=== PATIENT | female | born 1960 | race Caucasian/White ===

== ENCOUNTER → 2021-02-07 07:05 | Outpatient (CLI) | payer OTHER, SELFPAY ==
[2021-02-07 19:44] LABS: SARS-CoV-2 RNA PCR Negative
== END ==
PROVIDERS: PCP Internal Medicine; Visit Provider Internal Medicine Gastroenterology
DX: Z01.812 Encounter for preprocedural laboratory examination (principal); Z20.822 Contact with and (suspected) exposure to COVID-19
CPT/HCPCS: C9803; U0003; U0005

== ENCOUNTER 2021-02-10 01:04 | Day surgery (SDC) | payer OTHER, SELFPAY ==
[2021-02-04 08:59] VITALS: BMI 30.9
[2021-02-10 10:44] VITALS: BP 124/86; PULSE 100; RESP 16; TEMP 36.6; O2SAT 95; BMI 29.7
[2021-02-10] MEDS: LACTATED RINGERS 1,000 ML 150 ML IV CONT (10:51)
--- NOTE | 2021-02-10 11:16 | WPDANESEPPF ---
Anes - Initial Pre Proc Eval Procedure: Operation Date: 02/10/21 11:30 Proposed Procedures p Esophagogastroduodenoscopy & Colonoscopy - Dallin Loyd MD Date/Time: 02/10/21 11:16 Surgeon: Dallin Loyd MD Pre Op Diagnosis: positive cologuard, GERD Patient Data Age: 60 Gender: F Height: 5 ft 9 in Weight: 91.3 kg Last Vital Signs Temp 97.9 F 02/10/21 10:44 Pulse 100 02/10/21 10:44 Resp 16 02/10/21 10:44 BP 124/86 02/10/21 10:44 Pulse Ox 95 02/10/21 10:44 Allergies Allergy/AdvReac Type Severity Reaction Status Date / Time No Known Allergies Allergy Verified 02/10/21 10:41 Home Medications Medication Instructions Recorded Confirmed Type buprenorphine HCl 8 mg sublingual 8 mg SUBLINGUAL DAILY 11/25/20 02/10/21 History tablet folic acid 1 mg tablet 1 mg PO TID tablet 11/25/20 02/10/21 History methotrexate (PF) 25 mg/0.5 mL 25 mg SUBCUT WEEKLY 11/25/20 02/10/21 History subcutaneous auto-injector multivitamin 1 tablet PO DAILY 11/25/20 02/10/21 History pregabalin 150 mg capsule 150 mg PO BID 11/25/20 02/10/21 History venlafaxine 150 mg 150 mg PO .every other day cap 11/25/20 02/10/21 History capsule,extended release 24 hr cholecalciferol (vitamin D3) 50 50 mcg PO DAILY #90 tablet 11/26/20 02/10/21 Rx mcg (2,000 unit) tablet baclofen 10 mg tablet 10 mg PO DAILY 12/19/20 02/10/21 History metoprolol succinate 50 mg 50 mg PO DAILY #30 tablet 12/29/20 02/10/21 Rx tablet,extended release 24 hr pantoprazole 40 mg tablet,delayed 40 mg PO .COMPLEX #90 tablet 02/02/21 02/10/21 Rx release Patient hx anesthesia problems: none Family hx anesthesia problems: none PMFSH Past Medical History Medical History (Updated 02/10/21 @ 11:16 by Nikolas Winn MD) Anxiety Arthritis, rheumatoid Depression Hyperlipidemia Hypertension Opioid dependence Surgical History Surgical History H/O lumpectomy History of urinary tract surgery Family History Family History Mother No problems noted. Father Heart disease Sibling Cancer Grandparent No problems noted. Social History Social History (Updated 02/02/21 @ 07:58 by Inessa Winn MA) Smoking packs per day: 1 Smoking cigarettes per day: 20.0 Years smoked: 45 Smoking pack-years: 45.00 Smoking status: Current every day smoker Tobacco type: cigarettes Second hand tobacco smoke exposure: No Alcohol intake: never Living arrangements: with family Gender identity (if verbalized by the patient): Female Spiritual care concerns: No Anes - Eval Final PreProcedure Day of Procedure 02/10/21 11:16 Patient weight: overweight Heart: regular rate and rhythm Lungs: clear to auscultation Airway: Mallampati scale class II Neurological: alert and oriented Last oral intake: >/= 8 hours ASA classification: III Emergent: no Anesthetic plan: proceed Anesthesia type and monitoring: general GIVS and standard monitoring Informed Consent: The patient's anesthetic plan and its attendant risks and benefits were discussed with the patient/family/POA. Questions were solicited and answers provided to the satisfaction of the patient/family/POA.
--- NOTE | 2021-02-10 11:30 | PM.HPGS ---
History of Present Illness History of Present Illness Consent: Risks, benefits, and alternatives have been discussed and questions answered. Patient agrees to proceed with procedure. Chief complaint: positive cologuard, GERD Narrative: Miracle Rosenberg is a 60 year old female who has been troubled by epigastric pain for the last few months. At times it seems as though the discomfort is worse if she is lying or standing. In many respects it reminds her of the pain that she 1st experienced with acid reflux disease but now she is on medication for it she had not been having heartburn. This pain will last for a couple of hours and is generally relieved at least in part by taking Pepto-Bismol or another rpov-qlo-lprnswe preparation. She denies dysphagia vomiting or weight loss. The pain will feel like a hardness or very tight fist like discomfort in the epigastric area. She has not yet had a colonoscopy. Her recent ColoGuard test was positive. Review of Systems Review of Systems: All systems reviewed & are unremarkable except as noted in HPI and below PMFSH Past Medical History Medical History Anxiety Arthritis, rheumatoid Depression Hyperlipidemia Hypertension Opioid dependence Surgical History Surgical History H/O lumpectomy History of urinary tract surgery Family History Family History Mother No problems noted. Father Heart disease Sibling Cancer Grandparent No problems noted. Social History Social History Smoking packs per day: 1 Smoking cigarettes per day: 20.0 Years smoked: 45 Smoking pack-years: 45.00 Smoking status: Current every day smoker Tobacco type: cigarettes Second hand tobacco smoke exposure: No Alcohol intake: never Living arrangements: with family Gender identity (if verbalized by the patient): Female Spiritual care concerns: No Meds Home Medications and Allergies Home Medications Medication Instructions Recorded Confirmed Type buprenorphine HCl 8 mg sublingual 8 mg SUBLINGUAL DAILY 11/25/20 02/10/21 History tablet folic acid 1 mg tablet 1 mg PO TID tablet 11/25/20 02/10/21 History methotrexate (PF) 25 mg/0.5 mL 25 mg SUBCUT WEEKLY 11/25/20 02/10/21 History subcutaneous auto-injector multivitamin 1 tablet PO DAILY 11/25/20 02/10/21 History pregabalin 150 mg capsule 150 mg PO BID 11/25/20 02/10/21 History venlafaxine 150 mg 150 mg PO .every other day cap 11/25/20 02/10/21 History capsule,extended release 24 hr cholecalciferol (vitamin D3) 50 50 mcg PO DAILY #90 tablet 11/26/20 02/10/21 Rx mcg (2,000 unit) tablet baclofen 10 mg tablet 10 mg PO DAILY 12/19/20 02/10/21 History metoprolol succinate 50 mg 50 mg PO DAILY #30 tablet 12/29/20 02/10/21 Rx tablet,extended release 24 hr pantoprazole 40 mg tablet,delayed 40 mg PO .COMPLEX #90 tablet 02/02/21 02/10/21 Rx release Allergies Allergy/AdvReac Type Severity Reaction Status Date / Time No Known Allergies Allergy Verified 02/10/21 10:41 Vital Signs Vital Signs - 24 hr 02/10/21 10:44 Temperature 36.6 C Pulse Rate 100 Respiratory Rate 16 Blood Pressure 124/86 Pulse Oximetry 95 Exam Const: General: alert Orientation/consciousness: patient oriented x3 Resp: Auscultation: clear to auscultation bilaterally Cardio: Rhythm: regular rhythm GI: GI Palp: Yes Soft to palpation and No Tenderness to palpation present (GI) Neuro: General: patient oriented x3 Assessment and Plan Assessment and plan (1) Epigastric pain: Code(s): R10.13 - Epigastric pain Status: Acute Assessment and Plan: EGD with possible biopsy or dilatation or cautery. (2) Positive colorectal cancer screening using Cologua
[2021-02-10 12:06] VITALS: BP 113/78; PULSE 69; RESP 14; O2SAT 96
[2021-02-10 12:16] VITALS: BP 137/84; PULSE 77; RESP 20; O2SAT 95
[2021-02-10 12:26] VITALS: BP 132/8; PULSE 66; RESP 12; O2SAT 97
== END 2021-02-10 12:28 | disposition home or self-care (01) ==
PROVIDERS: PCP Internal Medicine; Visit Provider Internal Medicine Gastroenterology
PROC: 0DJ08ZZ Inspection of Upper Intestinal Tract, Via Natural or Artificial Opening Endoscopic (ICD-10-PCS; CPT 43235; principal; 2021-02-10 11:30)
DX: Z12.11 Encounter for screening for malignant neoplasm of colon (principal); R19.5 Other fecal abnormalities; K25.9 Gastric ulcer, unspecified as acute or chronic, without hemorrhage or perforation; K21.9 Gastro-esophageal reflux disease without esophagitis; I10 Essential (primary) hypertension; E78.5 Hyperlipidemia, unspecified; M06.9 Rheumatoid arthritis, unspecified; F41.8 Other specified anxiety disorders; F17.210 Nicotine dependence, cigarettes, uncomplicated
CPT/HCPCS: 45378; 43239; 87081; C9803; J2704; J7120; U0003; U0005

== ENCOUNTER → 2021-02-25 15:47 | Outpatient (CLI) | payer OTHER, SELFPAY ==
--- NOTE | ~2021-02-25 | CT_ITS ---
EXAMINATION:CT lung screening DATE: 02/25/2021 15:57 INDICATION: Tobacco use. Current smoker with 30 pack year history. TECHNIQUE: Computed tomography (CT) of the chest was performed without intravenous contrast. Automate d exposure control and iterative reconstruction technique were employed. The dose-length product (DLP ) was 106.87 mGy-cm. COMPARISON: Chest 2 views 11/23/2012 FINDINGS: There is mild atelectasis bilaterally. No pleural effusion. The heart size is normal. No pe ricardial effusion. Calcified left hilar lymph nodes are consistent with old granulomatous disease. C alcifications in the spleen are consistent with old granulomatous disease. There is mild thoracic spo ndylosis. IMPRESSION: 1. Lung-RADS category 1: Negative. Continue annual screening with noncontrast low-dose chest CT in 12 months. Reviewed, dictated and finalized at location A. IMPRESSION: 1. Lung-RADS category 1: Negative. Continue annual screening with noncontrast l ow-dose chest CT in 12 months.
== END ==
PROVIDERS: PCP Internal Medicine; Visit Provider Internal Medicine
DX: Z12.2 Encounter for screening for malignant neoplasm of respiratory organs (principal); Z87.891 Personal history of nicotine dependence
CPT/HCPCS: 71271

== ENCOUNTER → 2021-03-07 01:54 | Outpatient (CLI) | payer OTHER, SELFPAY ==
[2021-03-07 19:43] LABS: SARS-CoV-2 RNA PCR Negative
== END ==
PROVIDERS: PCP Internal Medicine; Visit Provider Internal Medicine Gastroenterology
DX: Z01.812 Encounter for preprocedural laboratory examination (principal); Z20.822 Contact with and (suspected) exposure to COVID-19
CPT/HCPCS: C9803; U0003; U0005

== ENCOUNTER 2021-03-11 02:20 | Day surgery (SDC) | payer OTHER, SELFPAY ==
[2021-03-02 15:00] VITALS: BMI 32.7
--- NOTE | 2021-03-11 07:41 | PM.HPGS ---
History of Present Illness History of Present Illness Consent: Risks, benefits, and alternatives have been discussed and questions answered. Patient agrees to proceed with procedure. Chief complaint: positive cologuard Narrative: Miracle Rosenberg is a 60 year old female referred for colon cancer screening. A colo guard test was done and was positive Review of Systems Review of Systems: All systems reviewed & are unremarkable except as noted in HPI and below PMFSH Past Medical History Medical History Anxiety Arthritis, rheumatoid Depression Hyperlipidemia Hypertension Opioid dependence Surgical History Surgical History H/O lumpectomy History of urinary tract surgery Family History Family History Mother No problems noted. Father Heart disease Sibling Cancer Grandparent No problems noted. Social History Social History Smoking packs per day: 1 Smoking cigarettes per day: 20.0 Years smoked: 45 Smoking pack-years: 45.00 Smoking status: Never smoker Tobacco type: cigarettes Second hand tobacco smoke exposure: No Alcohol intake: never Substance use: never Substance use type: does not use Living arrangements: with family Gender identity (if verbalized by the patient): Female Sexual Orientation (if Verbalized by the Patient): Straight or Heterosexual Spiritual care concerns: No Meds Home Medications and Allergies Home Medications Medication Instructions Recorded Confirmed Type buprenorphine HCl 8 mg sublingual 8 mg SUBLINGUAL DAILY 11/25/20 03/02/21 History tablet folic acid 1 mg tablet 1 mg PO TID tablet 11/25/20 03/02/21 History methotrexate (PF) 25 mg/0.5 mL 25 mg SUBCUT WEEKLY 11/25/20 03/02/21 History subcutaneous auto-injector multivitamin 1 tablet PO DAILY 11/25/20 03/02/21 History pregabalin 150 mg capsule 150 mg PO BID 11/25/20 03/02/21 History venlafaxine 150 mg 150 mg PO .every other day cap 11/25/20 03/02/21 History capsule,extended release 24 hr cholecalciferol (vitamin D3) 50 50 mcg PO DAILY #90 tablet 11/26/20 03/02/21 Rx mcg (2,000 unit) tablet baclofen 10 mg tablet 10 mg PO DAILY 12/19/20 03/02/21 History metoprolol succinate 50 mg 50 mg PO DAILY #30 tablet 12/29/20 03/02/21 Rx tablet,extended release 24 hr pantoprazole 40 mg tablet,delayed 40 mg PO .COMPLEX #90 tablet 02/02/21 03/02/21 Rx release Allergies Allergy/AdvReac Type Severity Reaction Status Date / Time No Known Allergies Allergy Verified 03/11/21 07:40 Exam Resp: Auscultation: clear to auscultation bilaterally Cardio: Rate: regular rate Rhythm: regular rhythm GI: GI Palp: Yes Soft to palpation and No Tenderness to palpation present (GI) Assessment and Plan Assessment and plan (1) Positive colorectal cancer screening using Cologuard test: Code(s): R19.5 - Other fecal abnormalities Status: Acute Assessment and Plan: Colonoscopy with possible biopsy or polypectomy or cautery or injection of substances.
[2021-03-11 07:42] VITALS: BP 115/75; PULSE 85; RESP 18; TEMP 36.3; O2SAT 94
--- NOTE | 2021-03-11 07:47 | WPDANESEPPF ---
Anes - Initial Pre Proc Eval Procedure: Operation Date: 03/11/21 08:30 Proposed Procedures p Colonoscopy - Dallin Loyd MD Date/Time: 03/11/21 07:47 Surgeon: Dallin Loyd MD Pre Op Diagnosis: positive cologuard Patient Data Age: 60 Gender: F Height: 1.73 m Weight: 91.1 kg Last Vital Signs Temp 36.3 C L 03/11/21 07:42 Pulse 85 03/11/21 07:42 Resp 18 03/11/21 07:42 BP 115/75 03/11/21 07:42 Pulse Ox 94 03/11/21 07:42 Allergies Allergy/AdvReac Type Severity Reaction Status Date / Time No Known Allergies Allergy Verified 03/11/21 07:40 Home Medications Medication Instructions Recorded Confirmed Type buprenorphine HCl 8 mg sublingual 8 mg SUBLINGUAL DAILY 11/25/20 03/02/21 History tablet folic acid 1 mg tablet 1 mg PO TID tablet 11/25/20 03/02/21 History methotrexate (PF) 25 mg/0.5 mL 25 mg SUBCUT WEEKLY 11/25/20 03/02/21 History subcutaneous auto-injector multivitamin 1 tablet PO DAILY 11/25/20 03/02/21 History pregabalin 150 mg capsule 150 mg PO BID 11/25/20 03/02/21 History venlafaxine 150 mg 150 mg PO .every other day cap 11/25/20 03/02/21 History capsule,extended release 24 hr cholecalciferol (vitamin D3) 50 50 mcg PO DAILY #90 tablet 11/26/20 03/02/21 Rx mcg (2,000 unit) tablet baclofen 10 mg tablet 10 mg PO DAILY 12/19/20 03/02/21 History metoprolol succinate 50 mg 50 mg PO DAILY #30 tablet 12/29/20 03/02/21 Rx tablet,extended release 24 hr pantoprazole 40 mg tablet,delayed 40 mg PO .COMPLEX #90 tablet 02/02/21 03/02/21 Rx release Patient hx anesthesia problems: none Family hx anesthesia problems: none PMFSH Past Medical History Medical History Anxiety Arthritis, rheumatoid Depression Hyperlipidemia Hypertension Opioid dependence Surgical History Surgical History H/O lumpectomy History of urinary tract surgery Family History Family History Mother No problems noted. Father Heart disease Sibling Cancer Grandparent No problems noted. Social History Social History Smoking packs per day: 1 Smoking cigarettes per day: 20.0 Years smoked: 45 Smoking pack-years: 45.00 Smoking status: Never smoker Tobacco type: cigarettes Second hand tobacco smoke exposure: No Alcohol intake: never Substance use: never Substance use type: does not use Living arrangements: with family Gender identity (if verbalized by the patient): Female Sexual Orientation (if Verbalized by the Patient): Straight or Heterosexual Spiritual care concerns: No Anes - Eval Final PreProcedure Day of Procedure 03/11/21 07:47 Patient weight: obese Heart: regular rate and rhythm Lungs: clear to auscultation and normal air movement Airway: Mallampati scale class II Neurological: alert and oriented Last oral intake: >/= 8 hours ASA classification: III Emergent: no Anesthetic plan: proceed Anesthesia type and monitoring: general GIVS Informed Consent: The patient's anesthetic plan and its attendant risks and benefits were discussed with the patient/family/POA. Questions were solicited and answers provided to the satisfaction of the patient/family/POA.
[2021-03-11] MEDS: LACTATED RINGERS 1,000 ML 150 ML IV CONT (07:56)
[2021-03-11 08:46] VITALS: BP 101/53; PULSE 66; RESP 14; O2SAT 98
--- NOTE | 2021-03-11 08:49 | SUR.OPER ---
resolution clip x 1 expiration 01-01 lot no [id number]
[2021-03-11 08:56] VITALS: BP 110/62; PULSE 67; RESP 18; O2SAT 99
[2021-03-11 09:06] VITALS: BP 139/79; PULSE 65; RESP 16; O2SAT 100
== END 2021-03-11 09:14 | disposition home or self-care (01) ==
PROVIDERS: PCP Internal Medicine; Visit Provider Internal Medicine Gastroenterology
PROC: 0DJD8ZZ Inspection of Lower Intestinal Tract, Via Natural or Artificial Opening Endoscopic (ICD-10-PCS; CPT 45378; principal; 2021-03-11 08:30)
DX: Z12.11 Encounter for screening for malignant neoplasm of colon (principal); D12.5 Benign neoplasm of sigmoid colon; D12.4 Benign neoplasm of descending colon; R19.5 Other fecal abnormalities; I10 Essential (primary) hypertension; E78.5 Hyperlipidemia, unspecified; M06.9 Rheumatoid arthritis, unspecified; F41.8 Other specified anxiety disorders; E66.9 Obesity, unspecified; Z68.30 Body mass index [BMI] 30.0-30.9, adult; F17.210 Nicotine dependence, cigarettes, uncomplicated; F11.20 Opioid dependence, uncomplicated
CPT/HCPCS: 45385; 88305; C9803; J2704; J7120; U0003; U0005

== ENCOUNTER → 2022-09-30 13:20 | Outpatient (CLI) | payer OTHER, SELFPAY ==
--- NOTE | ~2022-09-30 | DEXA_ITS ---
Bone Density Report Name: AUGUSTO REY Age: 62 Sex: Female Ethnicity: White Date of : 1960 Indication: postmenopausal; screening for osteoporosis; height loss; rheumatoid arthritis; Referring Provider: Flora Birmingham Study: Bone densitometry was performed. Exam Date: September 30, 2022 Accession number: [id number] Bone Density: Region BMD T-score Z-score Classification AP Spine (L1-L4) 0.951 -0.9 0.8 Normal Femoral Neck (Left) 0.696 -1.4 0.1 Osteopenia Total Hip (Left) 0.878 -0.5 0.7 Normal Femoral Neck (Right) 0.733 -1.0 0.4 Normal Total Hip (Right) 0.857 -0.7 0.5 Normal Total Hip Mean 0.868 -0.6 0.6 Normal World Health Organization criteria for BMD impression classify patients as: Normal (T-score at or above -1.0), Osteopenia (T-score between -1.0 and -2.5), or Osteoporosis (T-score at or below -2.5). 10-year Fracture Risk(1): Major Osteoporotic Fracture 11% Hip Fracture 1.8% Reported Risk Factors: [place] (), Neck BMD=0.696, BMI=33.0, smoking, rheumatoid arthritis (1) FRAX(R) Version 3.08. Fracture probability calculated for an untreated patient. Fracture probability may be lower if the patient has received treatment. Clinical Information Provided by Patient: Smokes Has rheumatoid arthritis Has used the following medications: Vitamin D, MTV, RA meds Patient maximum height was 67.5 Menopause Age: 51 No regular weight bearing exercise Does not regularly consume dairy products Drinks caffeinated beverages Onset of menses at age 10 Number of children 2 Impression: The patient has low bone mass, based on the Left Femoral Neck T-score. The patient has an estimated ten-year risk of hip fracture of 1.8% and an estimated ten-year risk of major fracture of 11%, based on the WHO FRAX algorithm. The patient has risk factors, including: smoking. Discussion: BONE DENSITY IS LOW AT ONE OR MORE SKELETAL SITES. This patient's lowest T-score is low at one or more skeletal sites. It meets the World Health Organization's (WHO) criteria for ?low bone mass? (T-score between -1.0 and -2.5). The patient's 10-year risk of fracture as calculated by FRAX is less than the threshold where pharmacological therapy is recommended by the National Osteoporosis Foundation (NOF). However, all treatment decisions require clinical judgment and consideration of individual patient factors, including patient preferences, comorbidities, previous drug use, risk factors not captured in the FRAX model (e.g., frailty, falls, vitamin D deficiency, increased bone turnover, interval significant decline in bone density) and possible under or overestimation of fracture risk by FRAX. The patient should follow a healthful lifestyle (good nutrition with adequate calcium and vitamin D, and appropriate weight-bearing exerc
--- NOTE | ~2022-09-30 | MM_ITS ---
EXAMINATION: MM screening poornima BI w brendan HISTORY: Screening mammogram, history of left excisional biopsy TECHNIQUE: Craniocaudal and mediolateral oblique 3-D tomosynthesis images were obtained and synthetic 2-D images were generated. CAD analysis was submitted and interpreted. COMPARISON: No prior mammogram is available for comparison at this institution. BREAST PARENCHYMAL COMPOSITION: There are scattered areas of fibroglandular density. FINDINGS: RIGHT BREAST: No suspicious mass, calcification, or architectural distortion are identified to sugges t malignancy. LEFT BREAST: There is asymmetry in the subareolar aspect of the breast.. IMPRESSION: 1. Subareolar asymmetry of the left breast. 2. Additional mammographic views and possible breast ultrasound are recommended. BI-RADS Category 0: Incomplete: Needs additional imaging evaluation. Reviewed, dictated and finalized at location A. [place] SALES ASSISTANT IMPRESSION: 1. Subareolar asymmetry of the left breast. 2. Additional mammographic views and possible breast ultrasound are recommended . BI-RADS Category 0: Incomplete: Needs additional imaging evaluation.
== END ==
PROVIDERS: PCP Nurse Practitioner; Visit Provider Nurse Practitioner
DX: Z12.31 Encounter for screening mammogram for malignant neoplasm of breast (principal); Z78.0 Asymptomatic menopausal state; R92.8 Other abnormal and inconclusive findings on diagnostic imaging of breast; M85.852 Other specified disorders of bone density and structure, left thigh
CPT/HCPCS: 77063; 77067; 77080

== ENCOUNTER → 2022-11-23 08:42 | Outpatient (CLI) | payer OTHER, SELFPAY ==
--- NOTE | ~2022-11-23 | MMUS_ITS ---
EXAMINATION: MM diagnostic poornima LT w brendan, US breast LT limited HISTORY: Follow-up left breast mass TECHNIQUE: Additional 3-D tomosynthesis images of the left breast were performed and synthetic 2-D im ages were generated. CAD analysis was submitted and interpreted. High resolution Limited left breast ultrasound was performed. COMPARISON: 09/30/2022 BREAST PARENCHYMAL COMPOSITION: Breast composed of scattered areas of fibroglandular density FINDINGS: MAMMOGRAPHIC FINDINGS: There is a small 3 mm mass in the upper outer quadrant of the left breast anteriorly. There are no arredondo spicious calcifications or architectural distortion. ULTRASOUND: Limited left breast ultrasound: At 12:00 near the areola there is a round anechoic mass with enhanced or transmission. There is internal vascularity. This mass measures 5 mm, likely corresponding to the mammographic finding. IMPRESSION: 1. Probable benign left breast mass at 12:00 near the areola measuring 5 mm. 2. Recommend 6 month follow-up diagnostic left mammogram and ultrasound BI-RADS category 3, probably benign findings. Reviewed, dictated and finalized at location A. ERY CLERK IMPRESSION: 1. Probable benign left breast mass at 12:00 near the areola measuring 5 mm. 2. Recommend 6 month follow-up diagnostic left mammogram and ultrasound BI-RADS category 3, probably benign findings.
== END ==
PROVIDERS: PCP Internal Medicine; Visit Provider Internal Medicine
DX: R92.8 Other abnormal and inconclusive findings on diagnostic imaging of breast (principal)
CPT/HCPCS: 76642; 77061; 77065; G0279

== ENCOUNTER 2023-03-15 16:52 | Outpatient (CLI) | payer OTHER, SELFPAY ==
--- NOTE | ~2023-03-15 | XR_ITS ---
EXAMINATION: XR foot RT min 3V DATE: 03/15/2023 19:05 INDICATION: Acute pain in right foot. TECHNIQUE: 4 views of right foot were obtained. COMPARISON: None. FINDINGS: There is severe hallux valgus. There is dorsiflexion of the metatarsophalangeal joints and flexion of the interphalangeal joints. There is dorsal dislocation of second proximal phalanx with re spect to the metatarsal. There is moderate osteoarthritis of first metatarsophalangeal joint and firs t interphalangeal joint and mild osteoarthritis of some of the interphalangeal joints. There are enth esophytes at the posterior and plantar aspects of calcaneal tuberosity. IMPRESSION: 1. Severe hallux valgus. 2. Dorsal dislocation of second proximal phalanx with respect to the metatarsal. 3. Polyarticular osteoarthritis. Reviewed, dictated and finalized at location A. IMPRESSION: 1. Severe hallux valgus. 2. Dorsal dislocation of second proximal phalanx with respect to the metatarsal . 3. Polyarticular osteoarthritis.
== END 2023-03-15 16:53 | disposition home or self-care (01) ==
LOC: ANHIMG 16:54
PROVIDERS: PCP Family Medicine; Visit Provider Physician Assistant
DX: M79.671 Pain in right foot (principal)
CPT/HCPCS: 73630

== ENCOUNTER → 2023-07-15 14:19 | Outpatient (CLI) | payer OTHER, SELFPAY ==
--- NOTE | ~2023-07-15 | MMUS_ITS ---
EXAMINATION: MM diagnostic poornima LT w brendan, US breast LT limited HISTORY: Follow-up left breast mass TECHNIQUE: Additional 3-D tomosynthesis images of the left breast were performed and synthetic 2-D im ages were generated. CAD analysis was submitted and interpreted. High resolution Limited left breast ultrasound was performed. COMPARISON: 11/23/2022 BREAST PARENCHYMAL COMPOSITION: Breast composed of scattered areas of fibroglandular density FINDINGS: MAMMOGRAPHIC FINDINGS: There is a 3 mm mass in the upper outer quadrant of the left breast anteriorly with circumscribed mar gins and central lucency, likely benign. There are no suspicious calcifications or architectural dist ortion. ULTRASOUND: Limited left breast ultrasound: Normal heterogeneous echotexture without focal solid or cystic mass. IMPRESSION: 1. Left breast mass, likely benign, measuring 3 mm, upper outer quadrant anteriorly. No sonographic c orrelate. 2. Recommend 6 month follow-up diagnostic left mammogram and possible additional ultrasound BI-RADS category 3, probably benign findings. Reviewed, dictated and finalized at location A. IMPRESSION: 1. Left breast mass, likely benign, measuring 3 mm, upper outer quadrant anteri aura. No sonographic correlate. 2. Recommend 6 month follow-up diagnostic left mammogram and possible additiona l ultrasound BI-RADS category 3, probably benign findings.
== END ==
PROVIDERS: PCP Nurse Practitioner; Visit Provider Nurse Practitioner
DX: R92.8 Other abnormal and inconclusive findings on diagnostic imaging of breast (principal)
CPT/HCPCS: 76642; 77061; 77065; G0279

== ENCOUNTER 2023-07-21 15:32 | Outpatient (CLI) | payer OTHER, SELFPAY ==
--- NOTE | ~2023-07-21 | XR_ITS ---
XR foot LT 2V DATE: 07/21/2023 15:55 INDICATION: Medial foot pain TECHNIQUE: AP and lateral views COMPARISON: None FINDINGS: Minimal plantar and posterior calcaneal enthesopathy. There is prominent osteoarthritic change including severe narrowing of joint space at the first metat arsophalangeal joint. Prominent hallux valgus and bunion deformity. Hammertoe deformities of the second through fifth digits. No fracture or dislocation, periosteal reaction or bone destruction is detected. 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
--- NOTE | ~2023-07-21 | XR_ITS ---
XR ankle LT min 3V DATE: 07/21/2023 15:54 INDICATION: Medial ankle pain. Fall 2 weeks ago. TECHNIQUE: 4 views COMPARISON: None FINDINGS: Moderate soft tissue swelling of the ankle. No fracture or dislocation of the ankle or disruption of the ankle mortise is detected. Minimal plantar and posterior calcaneal enthesopathy. IMPRESSION: Soft tissue swelling of the ankle Minimal plantar and posterior calcaneal enthesopathy Reviewed, dictated and finalized at location A.
== END 2023-07-21 15:33 | disposition home or self-care (01) ==
PROVIDERS: PCP Nurse Practitioner; Visit Provider Nurse Practitioner
DX: M25.572 Pain in left ankle and joints of left foot (principal); M79.672 Pain in left foot; M20.12 Hallux valgus (acquired), left foot; M21.612 Bunion of left foot; M20.42 Other hammer toe(s) (acquired), left foot; M19.072 Primary osteoarthritis, left ankle and foot; M77.32 Calcaneal spur, left foot; R22.42 Localized swelling, mass and lump, left lower limb
CPT/HCPCS: 73610; 73620

== ENCOUNTER 2024-02-10 10:53 | Outpatient (CLI) | payer OTHER, SELFPAY ==
--- NOTE | ~2024-02-10 | MM_ITS ---
EXAMINATION: MM diagnostic poornima LT w brendan HISTORY: Follow-up left breast mass TECHNIQUE: Additional 3-D tomosynthesis images of the left breast were performed and synthetic 2-D im ages were generated. CAD analysis was submitted and interpreted. COMPARISON: Comparison to multiple prior studies sequentially, with oldest reviewed study dated 05/2022. BREAST PARENCHYMAL COMPOSITION: Not dense: There are scattered areas of fibroglandular density. FINDINGS: Stable 3 mm mass upper outer quadrant of the left breast anteriorly, most likely benign. No significant change dating back to 09/30/2022. IMPRESSION: 1. Stable 3 mm left breast mass located upper outer quadrant anteriorly. 2. Targeted left breast ultrasound recommended. BI-RADS Category 0: Incomplete: Needs additional imaging evaluation. Reviewed, dictated and finalized at location B.
== END 2024-02-10 10:54 | disposition home or self-care (01) ==
LOC: ANHIMG 10:54
PROVIDERS: PCP Nurse Practitioner Family; Visit Provider Nurse Practitioner
DX: N63.21 Unspecified lump in the left breast, upper outer quadrant (principal); R92.8 Other abnormal and inconclusive findings on diagnostic imaging of breast
CPT/HCPCS: 77061; 77065; G0279

== ENCOUNTER 2024-02-20 12:52 | Outpatient (CLI) | payer OTHER, SELFPAY ==
--- NOTE | ~2024-02-20 | CT_ITS ---
CT Scan of the Chest without Contrast: Clinical Indication: Lung cancer screening, nicotine dependence Technique: Contiguous sections were acquired throughout the chest without intravenous contrast. Dose reduction technique was used on this scan by utilizing automated exposure control and iterative recon struction technique. The dose-length product (DLP) was 148.69 mGy-cm. COMPARISON: 02/25/2021 Findings: There is no evidence of any significant mediastinal, hilar or axillary lymphadenopathy. The mediastin al soft tissues appear normal. There is no evidence of pleural or pericardial effusion. The lungs are clear. No pulmonary nodules or infiltrates are noted. Images through the upper abdomen reveal no abnormalities. Impression: Lung RADS 1: Negative. 12 month follow-up screening CT advised. Reviewed, dictated and finalized at location . Impression: Lung RADS 1: Negative. 12 month follow-up screening CT advised.
== END 2024-02-20 12:53 ==
LOC: MICIMG 12:53
PROVIDERS: PCP Nurse Practitioner Family; Visit Provider Nurse Practitioner Family
DX: Z12.2 Encounter for screening for malignant neoplasm of respiratory organs (principal); Z87.891 Personal history of nicotine dependence
CPT/HCPCS: 71271

== ENCOUNTER 2024-02-20 14:16 | Outpatient (CLI) | payer OTHER, SELFPAY ==
--- NOTE | ~2024-02-20 | US_ITS ---
US breast LT limited DATE: 02/20/2024 15:09 INDICATION: Stable 3 mm anterior upper outer quadrant left breast mass reported on February 10, 2024 gabriella gnostic mammogram TECHNIQUE: Real time imaging targeted 12:00 subareolar area COMPARISON: February 10, 2024 left diagnostic mammogram July 15, 2023 diagnostic left mammogram and Limited left breast ultrasound FINDINGS: There is a circumscribed 3.5 x 4.5 mm sonolucency with through transmission, no posterior e nhancement or internal vascularity at the 12:00 subareolar area, benign in appearance. IMPRESSION: BI-RADS Category 2: Benign Recommendation: Routine annual mammographic screening Reviewed, dictated and finalized at [facility]. Reviewed, dictated and finalized at location [facility].
== END 2024-02-20 14:17 | disposition home or self-care (01) ==
PROVIDERS: PCP Nurse Practitioner Family; Visit Provider Nurse Practitioner
DX: R92.8 Other abnormal and inconclusive findings on diagnostic imaging of breast (principal)
CPT/HCPCS: 76642

== ENCOUNTER 2024-05-25 10:40 | Outpatient (CLI) | payer OTHER, SELFPAY ==
--- NOTE | 2024-05-25 | ECG_ITS ---
Test Date: 2024-05-25 11:32:55 Measurements Intervals [place] Rate: 66 P: 16 IA: 148 QRS: 50 QRSD: 92 T: 26 QT: 380 QTc: 399 Interpretive Statements SINUS RHYTHM NORMAL ELECTROCARDIOGRAM No previous ECG available for comparison Electronically Signed On 05-25-2024 11:39:09 CDT by Geraldo Franks M.D.
[2024-05-25 11:42] LABS: Hematocrit 43.4 % (37.0-47.0); Hemoglobin 13.9 g/dL (12.0-15.0); Mean Corpuscular Hemoglobin 31.7 pg (26-34); Mean Corpuscular Volume 99.1 fl (80-100); Mean Platelet Volume 9.3 fl (7.4-10.4); Platelet Count Result 299 k/mm3 (150-375); Red Blood Count 4.38 M/mm3 (4.2-5.4); Red Cell Distribution Width 15.2 % (11.5-14.5); White Blood Count 6.3 K/mm3 (4.5-10.0)
== END 2024-05-25 10:41 | disposition home or self-care (01) ==
PROVIDERS: PCP Nurse Practitioner Family
DX: M24.576 Contracture, unspecified foot (principal)
CPT/HCPCS: 36415; 85027; 93005

== ENCOUNTER 2024-10-11 12:40 | Outpatient (CLI) | payer OTHER, SELFPAY ==
--- NOTE | ~2024-10-11 | US_ITS ---
EXAMINATION:US venous doppler LE RT INDICATION:Right leg pain and swelling. TECHNIQUE: Multiple grayscale, color flow and Doppler images of the right lower extremity deep venous systems were obtained and reviewed. COMPARISON:No prior studies for comparison. FINDINGS: The common femoral, superficial femoral and popliteal veins demonstrate normal respiratory variation, augmentation and compressibility. Color flow is also seen within the posterior tibial, pe roneal, greater saphenous and profunda veins. IMPRESSION: 1: No lower extremity deep venous thrombosis. Reviewed, dictated and finalized at location [facility]. [employer]ANCE CLAIM REPRESENTATIVE
== END 2024-10-11 12:41 | disposition home or self-care (01) ==
LOC: MICIMG 12:40
PROVIDERS: PCP Nurse Practitioner Family
DX: I82.401 Acute embolism and thrombosis of unspecified deep veins of right lower extremity (principal)
CPT/HCPCS: 93971

== ENCOUNTER 2025-02-20 12:55 | Outpatient (CLI) | payer OTHER, SELFPAY ==
--- NOTE | ~2025-02-20 | MR_ITS ---
MRI of the right foot CLINICAL HISTORY: Pain TECHNIQUE: Axial T1-weighted, T2 fat sat, and T1 fat-sat images, sagittal T1-weighted and STIR images , and coronal T1-weighted and proton-density fat-sat images were performed. Following intravenous adm inistration of 18 cc MultiHance gadolinium, T1-weighted fat-sat imaging was performed in the axial, c oronal, and sagittal planes. FINDINGS: There is destructive change with T1 hypointense signal centered about the first MTP joint, extensively along the distal aspect of the first metatarsal and the first proximal phalanx. There is associated marrow edema on fluid sensitive sequences. There is probable fluid in the first MTP joint space with associated lobulated fluid collection along the dorsal aspect of the joint measuring 1.9 x 2.5 x 0.9 cm. Suspected prior resection of the second through fifth metatarsal heads versus destructive change. T1 marrow signal in the remainder of the second through fifth metatarsal appears to be relatively intact . Phalanges of the second through fifth toes appear to be intact. Visualized plantar fascia is intact. IMPRESSION: Findings compatible with osteomyelitis and septic arthritis centered at the first MTP joint, with ext ensive abnormal marrow signal destructive change of the first proximal phalanx and distal portion of the first metatarsal. Associated lobular fluid collection along the dorsal aspect of the joint measur ing 1.9 x 2.5 x 0.9 cm could reflect associated abscess. Suspected prior resection of the second through fifth metatarsal heads. Osteomyelitis and destructive change of the second through fifth metatarsal is felt to be less likely, but correlation with physic al exam and relevant surgical history is advised. Consider plain radiographic correlation. Reviewed, dictated and finalized at location . IMPRESSION: Findings compatible with osteomyelitis and septic arthritis centered at the fir st MTP joint, with extensive abnormal marrow signal destructive change of the f irst proximal phalanx and distal portion of the first metatarsal. Associated lo bular fluid collection along the dorsal aspect of the joint measuring 1.9 x 2.5 x 0.9 cm could reflect associated abscess. Suspected prior resection of the second through fifth metatarsal heads. Osteomy elitis and destructive change of the second through fifth metatarsal is felt to be less likely, but correlation with physical exam and relevant surgical histo ry is advised. Consider plain radiographic correlation.
== END 2025-02-20 12:56 | disposition home or self-care (01) ==
LOC: MICIMG 12:56
PROVIDERS: PCP Nurse Practitioner Family; Visit Provider Nurse Practitioner Family
DX: M71.371 Other bursal cyst, right ankle and foot (principal); Z98.890 Other specified postprocedural states; M79.671 Pain in right foot; L03.90 Cellulitis, unspecified
CPT/HCPCS: 73720; A9577

== ENCOUNTER 2025-02-22 16:43 | Emergency (ER) | payer OTHER, SELFPAY ==
--- NOTE | ~2025-02-22 | XR_ITS ---
XR foot RT min 3V Ordering provider: Bryan Salmon MD History: . r/o osteo . Comparison: March 15, 2023 FINDINGS: BONES: Destructive changes seen in the distal first, second, third, fourth and fifth metatarsal bones which may be due to previous infection or surgical. Sclerotic changes seen in the first and fifth me tatarsal bones and also in the first proximal phalanx which may indicate old osteomyelitis. No acute fracture or dislocation. JOINT SPACES: Narrowing of all the joint spaces in all the toes. No tarsal coalition. SOFT TISSUES: Soft tissue swelling seen in the area of the metatarsophalangeal joint and also mediall y and laterally. Calcaneus spur. IMPRESSION: Loss of bone seen in the distal first, second, third, fourth and fifth metatarsal bones which may be due to previous infection. Soft tissue swelling is seen in the area which may indicate infection or e ernestine. Further evaluation advised. Sclerotic changes in the first and fifth metatarsal bones and in the proximal phalanx of the big toe most likely due to old osteomyelitis. Reviewed, dictated and finalized at location A. IMPRESSION: Loss of bone seen in the distal first, second, third, fourth and fifth metatars al bones which may be due to previous infection. Soft tissue swelling is seen i n the area which may indicate infection or edema. Further evaluation advised. Sclerotic changes in the first and fifth metatarsal bones and in the proximal p halanx of the big toe most likely due to old osteomyelitis.
[2025-02-22 17:07] VITALS: BP 100/75; PULSE 82; RESP 16; TEMP 37; O2SAT 99
--- NOTE | 2025-02-22 17:37 | ED.GENADULT ---
HPI - General Adult General Chief complaint: Unspecified <Bonita Russell APRN - Last Filed: 02/22/25 17:39> Stated complaint: Sent in for poss IV antibiotics <Bonita Russell APRN - Last Filed: 02/22/25 17:39> Time Seen by Provider: 02/22/25 17:30 <Bonita Russell APRN - Last Filed: 02/22/25 17:39> Focused HPI: Patient is a 64-year-old female who presents to the ER with concerns of right lower extremity infection. She reports she has had multiple foot surgeries due to her RA. Patient reports the most recent surgery caused her to develop more pain and swelling. She went into her primary care doctor who ordered MRI and told patient she has osteomyelitis. Patient endorses pain and swelling that start above her right ankle and radiates down her whole foot. She denies a diagnosis of diabetes, recent fevers, or calf pain. GENERAL: Well-appearing, well-nourished, and in no acute distress. HEAD: Normocephalic, atraumatic. CHEST: Clear to auscultation. ?No respiratory distress. HEART: Regular rate and rhythm.? NEURO: ?Alert and oriented x3. Patient screened in triage and initial orders placed.? ?Additional care and disposition to be based upon?diagnostic testing and treatment. <Bonita Russell APRN - Last Filed: 02/22/25 17:39> History of Present Illness HPI narrative: I agree with the above HPI <Bryan Salmon MD - Last Filed: 02/22/25 21:59> Related Data Home medications: Home Medications ?Medication ?Instructions ?Recorded ?Confirmed ?Last Taken ?Type folic acid 1 mg tablet 1 mg PO TID 11/25/20 01/28/25 03/10/21 History 1 mg multivitamin (Daily Multi-Vitamin 1 tablet PO DAILY 11/25/20 01/28/25 03/10/21 History tablet) 1 tablet pregabalin 150 mg capsule 150 mg PO BID 11/25/20 01/28/25 03/10/21 History 150 mg venlafaxine 150 mg 150 mg PO .every other day 11/25/20 01/28/25 03/10/21 History capsule,extended release 24 hr 150 mg cholecalciferol (vitamin D3) 50 50 mcg PO DAILY 02/09/22 01/28/25 Unknown History mcg (2,000 unit) capsule adalimumab 40 mg/0.4 mL 40 mg subcut WEEKLY 07/21/23 01/28/25 Unknown History subcutaneous pen kit (Humira(CF) Pen) armodafinil 150 mg tablet 150 mg PO QAM 01/26/24 01/28/25 Unknown History buprenorphine 8 mg-naloxone 2 mg 1 film buccal DAILY 01/26/24 01/28/25 Unknown History sublingual film (Suboxone) calcium carbonate 600 mg PO DAILY 01/28/25 01/28/25 Unknown History methotrexate (PF) 25 mg/0.4 mL 25 mg subcut WEEKLY 01/28/25 01/28/25 Unknown History subcutaneous auto-injector (Otrexup (PF)) omeprazole 20 mg capsule,delayed 20 mg PO DAILY 01/28/25 01/28/25 Unknown History release <Bonita Russell APRN - Last Filed: 02/22/25 17:39> Allergies/adverse reactions: Allergies Allergy/AdvReac Type Severity Reaction Status Date / Time [id number] Reductase AdvReac Severe muscle Verified 02/22/25 16:44 Inhibitor aches <Bonita Russell APRN - Last Filed: 02/22/25 17:39> Review of Systems Review of Systems: All systems reviewed & are unremarkable except as noted in HPI and below <Bryan Salmon MD - Last Filed: 02/22/25 21:59> [facility] Past Medical History Medical History: Medical History Best vitelliform macular dystrophy COVID-19 Hyperlipidemia Hypertension Opioid dependence Arthritis, rheumatoid Anxiety Depression <Bonita Russell APRN - Last Filed: 02/22/25 17:39> Surgical History Surgical History: Surgical History H/O foot surgery History of urinary tract surgery H/O lumpectomy <Bonita Russell APRN - Last Filed: 02/22/25 17:39> Family History Family History: Family History Mother No problems noted. Father Heart disease Sibling Cancer Grandparent No problems noted. <Bonita Russell APRN - Last Filed: 02/22/25 17:39> Social History Social History: Social History Smoking packs per day: 1 Smoking cigarettes per day: 20.0 Years smoked: 45 Smoking pack-years: 45.00 Smoking status: Current every day smoker Tobacco type: cigarettes Second hand tobacco smoke exposure: No Alcohol intake: never Substance use: never Substance use type: does not use Do You Feel Safe in your Home?: Yes Lack of Transportation: No Lack of Food: Never True Current Housing: I Have Housing Concerned About Future Housing: No Difficulty Paying Gas/Electric Bills: No Difficulty Paying for Meds: No Currently Unemployed: No Education: Bachelor's Degree Difficulty w/ Childcare or Family Care: No Living arrangements: with family Gender identity (if verbalized by the patient): Female Sexual Orientation (if Verbalized by the Patient): Straight or Heterosexual Spiritual care concerns: No <Bonita Russell APRN - Last Filed: 02/22/25 17:39> Exam Narrative: APPEARANCE: Well appearing, no pain, no distress, well-nourished. HEAD: normocephalic, atraumatic. EYES: PERRLA/EOMI, conjunctivae clear. NOSE: Normal no drainage EARS:TMS clear with good light reflex. THROAT: Pharynx clear, no exudate. NECK: Supple. No adenopathy, no masses. RESPIRATORY: Airway patent, respirations nonlabored. Clear to auscultation bilaterally, no rales, rhonchi, wheezing. CARDIOVASCULAR: Regular rate and rhythm without murmurs rubs or gallops. ABDOMINAL: Soft, nontender, nondistended, normal bowel sounds MUSCULOSKELETAL: Mild swelling to right foot with no significant erythema NEURO: Alert. Cranial nerves II through XII intact. Good gait. Good coordination SKIN: Warm, dry. Normal Color <Bryan Salmon MD - Last Filed: 02/22/25 21:59> Course Vital Signs Vital signs: Vital Signs Temperature 98.6 F 02/22/25 17:07 Pulse Rate 82 02/22/25 17:07 Respiratory Rate 16 02/22/25 17:07 Blood Pressure 100/75 02/22/25 17:07 Pulse Oximetry 99 02/22/25 17:07 Temperature 98.1 F 02/22/25 21:15 Pulse Rate 78 02/22/25 21:15 Respiratory Rate 16 02/22/25 21:15 Blood Pressure 113/89 02/22/25 21:15 Pulse Oximetry 97 02/22/25 21:15 <Bonita Russell APRN - Last Filed: 02/22/25 17:39> Vital Signs Temperature 98.6 F 02/22/25 17:07 Pulse Rate 82 02/22/25 17:07 Respiratory Rate 16 02/22/25 17:07 Blood Pressure 100/75 02/22/25 17:07 Pulse Oximetry 99 02/22/25 17:07 Temperature 98.1 F 02/22/25 21:15 Pulse Rate 78 02/22/25 21:15 Respiratory Rate 16 02/22/25 21:15 Blood Pressure 113/89 02/22/25 21:15 Pulse Oximetry 97 02/22/25 21:15 <Bryan Salmon MD - Last Filed: 02/22/25 21:59> Medical Decision Making MDM Narrative Medical decision making narrative: 64-year-old female presents emergency department for evaluation for chronic osteomyelitis. Patient has had the symptoms ongoing for approximately 7 months. Patient has no evidence of current abscess or cellulitis. Patient is currently afebrile with no leukocytosis and no elevated CRP. I discussed the case with orthopedics and they were comfortable with the patient potentially having outpatient follow-up. I did discuss the case with Dr. Cleveland , the physician on-call for the patient's oliving machine operator and they were comfortable getting the patient started on Keflex and having outpatient follow-up on Tuesday. Patient was comfortable the plan for discharge and close follow-up. <Bryan Salmon MD - Last Filed: 02/22/25 21:59> Differential Diagnosis Differential Diagnosis: Abscess, osteomyelitis, chronic osteomyelitis, cellulitis, foot fracture <Bryan Salmon MD - Last Filed: 02/22/25 21:59> Vital Signs Vital Signs: Vital Signs Temperature 98.6 F 02/22/25 17:07 Pulse Rate 82 02/22/25 17:07 Respiratory Rate 16 02/22/25 17:07 Blood Pressure 100/75 02/22/25 17:07 Pulse Oximetry 99 02/22/25 17:07 Temperature 98.1 F 02/22/25 21:15 Pulse Rate 78 02/22/25 21:15 Respiratory Rate 16 02/22/25 21:15 Blood Pressure 113/89 02/22/25 21:15 Pulse Oximetry 97 02/22/25 21:15 <Bonita Russell APRN - Last Filed: 02/22/25 17:39> Vital Signs Temperature 98.6 F 02/22/25 17:07 Pulse Rate 82 02/22/25 17:07 Respiratory Rate 16 02/22/25 17:07 Blood Pressure 100/75 02/22/25 17:07 Pulse Oximetry 99 02/22/25 17:07 Temperature 98.1 F 02/22/25 21:15 Pulse Rate 78 02/22/25 21:15 Respiratory Rate 16 02/22/25 21:15 Blood Pressure 113/89 02/22/25 21:15 Pulse Oximetry 97 02/22/25 21:15 <Bryan Salmon MD - Last Filed: 02/22/25 21:59> Lab Data Lab results reviewed: Yes I reviewed the patient's lab results. <Bryan Salmon MD - Last Filed: 02/22/25 21:59> Result diagrams: 02/22/25 18:36 02/22/25 18:36 <Bonita Russell APRN - Last Filed: 02/22/25 17:39> Labs: Lab Results 02/22/25 Range/Units 18:36 WBC 6.8 (4.5-10.0) K/mm3 RBC 3.31 L (4.2-5.4) M/mm3 Hgb 10.8 L D (12.0-15.0) g/dL Hct 33.0 L (37.0-47.0) % MCV 99.7 (80-100) fl MCH 32.6 (26-34) pg MCHC 32.7 (32-36) g/dl RDW 16.4 H (11.5-14.5) % Plt Count 227 (150-375) k/mm3 MPV 8.9 (7.4-10.4) fl Immature Gran % (Auto) 0.3 (0-0.5) % Neut % (Auto) 48.5 (45.5-73.1) % Lymph % (Auto) 38.3 (18.3-44.2) % [place] % (Auto) 10.4 H (2.6-8.5) % Eos % (Auto) 2.2 (0-4.4) % Baso % (Auto) 0.3 (0.2-1.2) % Lymph # (Auto) 2.59 (0.9-3.2) K/mm3 [place] # (Auto) 0.7 H (0.1-0.6) K/mm3 Eos # (Auto) 0.2 (0-0.3) K/mm3 Baso # (Auto) 0.0 (0.0-0.1) K/mm3 Abs Immat Gran (auto) 0.02 (0.00-0.031) K/mm3 Absolute Neuts (auto) 3.3 (1.3-6.7) K/mm3 Absolute Nucleated RBC 0.000 (0.0-0.012) K/mm3 Nucleated RBC % 0.0 (0.0-0.2) % PT 13.2 (11.1-14.7) Seconds INR 1.0 APTT 24.6 (22.3-36.8) Seconds Sodium 137 (137-145) mmol/L Potassium 3.8 (3.4-5.0) mmol/L Chloride 97 L (98-107) mmol/L Carbon Dioxide 33 H (22-30) mmol/L Anion Gap 7 (4-12) mmol/L BUN 17 (7-17) mg/dL Creatinine 0.71 (0.7-1.0) mg/dL Estim Creat Clear Calc 75 ml/min Estimated GFR > 60 (59 - ) Glucose 90 (65-110) mg/dL Lactic Acid 0.6 L (0.7-2.0) mmol/L Calcium 9.3 (8.4-10.2) mg/dL Total Bilirubin 0.3 (0.2-1.3) mg/dL AST 31 (14-36) U/L ALT 19 (6-35) U/L Alkaline Phosphatase 116 (38-126) U/L C-Reactive Protein 1.0 (<1.0) mg/dL Total Protein 8.0 (6.3-8.2) g/dL Albumin 4.6 (3.5-5.1) g/dL <Bonita Russell, SINGLE [employer]NER CUTTER - Last Filed: 02/22/25 17:39> Lab Results 02/22/25 Range/Units 18:36 WBC 6.8 (4.5-10.0) K/mm3 RBC 3.31 L (4.2-5.4) M/mm3 Hgb 10.8 L D (12.0-15.0) g/dL Hct 33.0 L (37.0-47.0) % MCV 99.7 (80-100) fl MCH 32.6 (26-34) pg MCHC 32.7 (32-36) g/dl RDW 16.4 H (11.5-14.5) % Plt Count 227 (150-375) k/mm3 MPV 8.9 (7.4-10.4) fl Immature Gran % (Auto) 0.3 (0-0.5) % Neut % (Auto) 48.5 (45.5-73.1) % Lymph % (Auto) 38.3 (18.3-44.2) % [place] % (Auto) 10.4 H (2.6-8.5) % Eos % (Auto) 2.2 (0-4.4) % Baso % (Auto) 0.3 (0.2-1.2) % Lymph # (Auto) 2.59 (0.9-3.2) K/mm3 [place] # (Auto) 0.7 H (0.1-0.6) K/mm3 Eos # (Auto) 0.2 (0-0.3) K/mm3 Baso # (Auto) 0.0 (0.0-0.1) K/mm3 Abs Immat Gran (auto) 0.02 (0.00-0.031) K/mm3 Absolute Neuts (auto) 3.3 (1.3-6.7) K/mm3 Absolute Nucleated RBC 0.000 (0.0-0.012) K/mm3 Nucleated RBC % 0.0 (0.0-0.2) % PT 13.2 (11.1-14.7) Seconds INR 1.0 APTT 24.6 (22.3-36.8) Seconds Sodium 137 (137-145) mmol/L Potassium 3.8 (3.4-5.0) mmol/L Chloride 97 L (98-107) mmol/L Carbon Dioxide 33 H (22-30) mmol/L Anion Gap 7 (4-12) mmol/L BUN 17 (7-17) mg/dL Creatinine 0.71 (0.7-1.0) mg/dL Estim Creat Clear Calc 75 ml/min Estimated GFR > 60 (59 - ) Glucose 90 (65-110) mg/dL Lactic Acid 0.6 L (0.7-2.0) mmol/L Calcium 9.3 (8.4-10.2) mg/dL Total Bilirubin 0.3 (0.2-1.3) mg/dL AST 31 (14-36) U/L ALT 19 (6-35) U/L Alkaline Phosphatase 116 (38-126) U/L C-Reactive Protein 1.0 (<1.0) mg/dL Total Protein 8.0 (6.3-8.2) g/dL Albumin 4.6 (3.5-5.1) g/dL <Bryan Salmon MD - Last Filed: 02/22/25 21:59> Discharge Plan Discharge Clinical Impression: Chronic osteomyelitis <Bonita Russell APRN - Last Filed: 02/22/25 17:39> Patient Disposition: Home <Bonita Russell APRN - Last Filed: 02/22/25 17:39> Condition: Stable <Bonita Russell APRN - Last Filed: 02/22/25 17:39> Instructions: Antibiotic Form <Bonita Russell APRN - Last Filed: 02/22/25 17:39> Additional Instructions: Have close follow-up with your oliving machine operator on Tuesday. Antibiotic as directed until completed. <Bonita Russell APRN - Last Filed: 02/22/25 17:39> Patient Language: Arabic <Bonita Russell APRN - Last Filed: 02/22/25 17:39> Prescriptions: New cephalexin 500 mg capsule 500 mg PO Q8H 7 Days Qty: 21 0RF No Action buprenorphine-naloxone [Suboxone] 8-2 mg film 1 film buccal DAILY armodafinil 150 mg tablet 150 mg PO QAM pregabalin 150 mg capsule 150 mg PO BID folic acid 1 mg tablet 1 mg PO TID venlafaxine 150 mg capsule,extended release 24hr 150 mg PO .every other day multivitamin [Daily Multi-Vitamin] Tablet 1 tablet PO DAILY cholecalciferol (vitamin D3) 50 mcg (2,000 unit) capsule 50 mcg PO DAILY Humira(CF) Pen 40 mg/0.4 mL pen injector kit 40 mg subcut WEEKLY Otrexup (PF) 25 mg/0.4 mL auto-injector 25 mg subcut WEEKLY omeprazole 20 mg capsule,delayed release(DR/EC) 20 mg PO DAILY calcium carbonate 600 mg calcium (1,500 mg) tablet 600 mg PO DAILY doxycycline hyclate 100 mg capsule 100 mg PO BID Qty: 14 0RF ezetimibe [Zetia] 10 mg tablet 10 mg PO DAILY Qty: 90 1RF varenicline tartrate [Chantix Starting Month Box] 0.5 mg (11)- 1 mg (42) tablets,dose pack See Rx Instructions PO PER PKG DIR Qty: 53 0RF Rx Instructions: PO PER PKG DIR <Bonita Russell APRN - Last Filed: 02/22/25 17:39> Follow-up/Referrals: Hayley Cerda APRN [Primary Care Provider] - <Bonita Russell APRN - Last Filed: 02/22/25 17:39>
[2025-02-22 18:42] LABS: Basophils Percent Auto 0.3 % (0.2-1.2); Eosinophils Absolute Auto 0.2 K/mm3 (0-0.3); Eosinophils Percent Auto 2.2 % (0-4.4); Hemoglobin 10.8 g/dL (12.0-15.0); Immature Granulocyte Absolute 0.02 K/mm3 (0.00-0.031); Immature Granulocyte Percent A 0.3 % (0-0.5); Lymphocytes Absolute Auto 2.59 K/mm3 (0.9-3.2); Lymphocytes Percent Auto 38.3 % (18.3-44.2); Mean Corpuscular HGB Conc 32.7 g/dl (32-36); Mean Corpuscular Hemoglobin 32.6 pg (26-34); Mean Corpuscular Volume 99.7 fl (80-100); Mean Platelet Volume 8.9 fl (7.4-10.4); Monocytes Absolute Auto 0.7 K/mm3 (0.1-0.6); Monocytes Percent Auto 10.4 % (2.6-8.5); Neutrophils Absolute Auto 3.3 K/mm3 (1.3-6.7); Neutrophils Percent Auto 48.5 % (45.5-73.1); Platelet Count Result 227 k/mm3 (150-375); Red Blood Count 3.31 M/mm3 (4.2-5.4); Red Cell Distribution Width 16.4 % (11.5-14.5); White Blood Count 6.8 K/mm3 (4.5-10.0)
[2025-02-22 18:53] LABS: Lactic Acid Reflex 0.6 mmol/L (0.7-2.0); Prothrombin Time 13.2 Seconds (11.1-14.7)
[2025-02-22 18:54] LABS: Partial Thromboplastin Time 24.6 Seconds (22.3-36.8)
[2025-02-22 18:57] LABS: Alanine Aminotransferase 19 U/L (6-35); Albumin Level 4.6 g/dL (3.5-5.1); Alkaline Phosphatase 116 U/L (38-126); Anion Gap 7 mmol/L (4-12); Aspartate Amino Transferase 31 U/L (14-36); Bilirubin,Total 0.3 mg/dL (0.2-1.3); Blood Urea Nitrogen 17 mg/dL (7-17); Calcium 9.3 mg/dL (8.4-10.2); Carbon Dioxide 33 mmol/L (22-30); Chloride 97 mmol/L (98-107); Estimated CRCL calculation 75 ml/min; Estimated Glomerular Filt Rate > 60; Glucose 90 mg/dL (65-110); Potassium 3.8 mmol/L (3.4-5.0); Sodium 137 mmol/L (137-145)
[2025-02-22] MEDS: CEFEPIME 2 GM/NS 50 ML 2 GM/50 ML BAG IVPB (19:32)
[2025-02-22] MEDS: metroNIDAZOLE 500 MG/ISO 100ML 500 MG/100 ML BAG 100 MG IVPB (19:59)
[2025-02-22 21:15] VITALS: BP 113/89; PULSE 78; RESP 16; TEMP 36.7; O2SAT 97
--- OUTSIDE RECORDS SUMMARY | 2025-02-23 14:57 | XMS_ITS | Clinical Summary ---
Author Organization [facility] Address [address] [place] [address] Phone Care Team Providers Care Vp Lab Name Role Phone Hayley Cerda APRN, [place] Primary Care Provider + Allergies No known active allergies Medications buprenorphine-n aloxone (Suboxone) 8-2 MG FILM 1 Film by Sublingual route Daily as needed for Other (PAIN). Active Armodafinil 200 MG Tablet Take 1 Tablet by mouth daily. TAKES 1/2 TABLET IN THE AM TAKES 1/2 TABLET IN THE AFTERNOON Active folic acid (FOLVITE) 1 MG Tablet Take 1 mg by mouth 3 times daily. Active Venlafaxine HCl XR (EFFEXOR-XR) 225 MG TABLET SR 24 HR Take 1 Tablet by mouth every morning. Active varenicline (CHANTIX) 1 MG Tablet Take 1 mg by mouth 2 times daily. Active pregabalin (LYRICA) 150 MG Capsule Take 150 mg by mouth 2 times daily. Active methotrexate, PF, (Otrexup) 25 MG/0.4ML Solution Auto-injector 25 mg by Subcutaneous route once a week. Chemo: Medication requires special safe handling and disposal. TUESDAY Active Adalimumab (Humira, 2 Pen,) 40 MG/0.4ML Pen-injector Kit 40 mg by Subcutaneous route every 14 days. Active Ibuprofen-Aceta minophen (Motrin Dual Action) 125-250 MG Tablet Take 2 Tablets by mouth daily as needed. Active HYDROcodone-naman taminophen (NORCO) 5-325 MG TabletIndicatio ns:Metatarsalgi a of left foot Take 1-2 Tablets by mouth every 4 hours as needed for Mild or more severe pain. 30 Tablet Active Additional Information Patient not taking.Reported on 07/31/2024 nicotine (NICODERM CQ) 14 MG/24HR PATCH 24 HR 1 Patch by Transdermal route every 24 hours. Active ketorolac (TORADOL) 10 MG Tablet Take 1 Tablet by mouth every 6 hours as needed for Mild or more severe pain. 30 Tablet Active Family History Medical History Relation Name Comments Heart Attack Father X3 Heart Disease Father Dementia Mother Relation Name Status Comments Father Mother Social History Tobacco Use Types Packs/Day Years Used Date Smoking Tobacco: Former Cigarettes 1 52 1 972 - 2023 Smokeless Tobacco: Never Tobacco Cessation:Counseling Given: Not Answered Alcohol Use Standard Drinks/Week Comments Never 0 (1 standard drink = 0.6 oz pur e alcohol) Comments Unknown Sex and Gender Information Value Date Recorded Sex Assigned at Not on file Legal Sex Female 12:38 PM CDT Gender Identity Not on file Sexual Orientation Not on file Last Filed Vital Signs Vital Sign Reading Time Taken Comments Blood Pressure 125/80 08/09/2024 3:30 PM CDT Pulse 68 08/09/2024 3:30 PM CDT Temperature 35.6 C (96.1 F) 08/09/2024 3:30 PM CDT Respiratory Rate 16 08/09/2024 3:30 PM CDT Oxygen Saturation 95% 08/09/2024 3:30 PM CDT Inhaled Oxygen Concentration - - Weight 88.5 kg (195 lb 3.2 oz) 08/09/2024 11:13 AM CDT Height 171.5 cm (5' 7.5 ) 08/09/2024 11:13 AM CD T Body Mass Index 30.12 08/09/2024 11:13 AM CDT Plan of Treatment Health Maintenance Due Date Last Done Comments DEXA Bone Density 1958 Hepatitis C Virus (HCV) Screening 1958 Mammogram 1958 TdaP Immunization 1958 Zoster Immunization (1 of 2) 1977 Colonoscopy 2003 Colorectal Cancer Screening 2003 Cologuard 2008 Immunochemical Fecal Occult Blood 2008 Lung Cancer Screening 2008 Pneumococcal Immunization (50+ years) (1 of 1 - PCV) 2008 Respiratory Syncytial Virus (RSV) Immunization (Adult) (1 - Risk 60-74 years 1-dose series) 2018 SARS-COV-2 Immunization (3 - Pfizer risk series) 03/14/2021 02/14/2021, 01/04/2021 Influenza Immunization Completed , 08/08/2023, 09/04/2021, Additional history exists Hepatitis B Immunization Aged Out No longer eligible based on patient's age to complete this topic Meningococcal Immunization (ACWY) Aged Out No longer eligible based on patient's age to complete this topic Rotavirus Immunization Aged Out No lo nger eligible based on patient's age to complete this topic Medical Devices Implanted Type Area Blast Hole Driller Device Identifier Shelf Expiration Date Model / Serial / Lot 0.062 K Wire Implanted:Qty: 1 on 08/09/2024 by Darlene Etienne DPM at [facility] Right: Toe 08/23/2024 [id number] / [id number] / N/A Description:[place] Insurance [facility] MEDIC[facility] Care Teams Vp Lab Relationship Specialty Start Date End Date WinterHayley APRN, DIALYSIS PATIENT CARE TECHNICIAN [address] [id number] [place] [phone] PCP - General Advanced Practice Nurse 06/01/24
--- OUTSIDE RECORDS SUMMARY | 2025-02-23 14:57 | XMS_ITS | Clinical Summary ---
Author Organization [facility] [address] [facility] Address [address] [place] [address] Phone Care Team Providers Care Lobby Attendant Name Role Phone Pop Mcwilliams MD Unavailable [phone] Elaine DotyM Unavailable [phone] Hayley Cerda NP Primary Care Provider [phone] Allergies Active Allergy Reactions Criticality Noted Date Comments Other Rash Medium 05/14/2010 Unknown med Infliximab Shortness of breath High 11/06/2021 Medications venlafaxine 150 mg tablet extended release 24hr 24 hr tablet take 1 tablet by oral route every day in the morning at the same time each day with food 0 0 6 Active armodafiniL (NUVIGIL) 150 mg tablet Take 1 tablet (150 mg total) by mouth daily Active multivitamin with iron tablet Take 1 tablet by mouth daily Active cholecalciferol (VITAMIN D-3) 2000 unit tablet Take by mouth Active calcium carbonate-vitami n D3 1,500 mg (600 mg elemental)-1,000 unit capsule Take by mouth Act agustin folic acid (FOLVITE) 1 mg tablet TAKE 3 TABLETS DAILY 270 tablet 3 4 Active adalimumab-ryvk 40 mg/0.4 mL auto-injector, kit Inject 40 mg under the skin every 14 (fourteen) days 2 each 3 5 Active pregabalin (LYRICA) 150 mg capsule Take 1 capsule (150 mg total) by mouth 2 (two) times a day 60 capsule 2 5 Active methotrexate, PF, (Otrexup, PF,) 25 mg/0.4 mL subcutaneous injectionIndicat ions:Rheumatoid Arthritis Inject 0.4 mL (25 mg total) under the skin every 7 days 1.6 mL 3 5 Active buprenorphine-na loxone (SUBOXONE) 8-[address] 1 AND 1/2 FILMS UNDER THE TONGUE DAILY 5 Active ezetimibe (ZETIA) 10 mg tablet Take 1 tablet (10 mg total) by mouth daily 5 Active ibuprofen-acetam inophen 125-250 mg tablet Take 2 tablets by mouth daily as needed Active omeprazole (PriLOSEC) 20 mg capsule Take 1 capsule (20 mg total) by mouth daily Active buprenorphine-na loxone (ZUBSOLV) 5.7-1.4 mg tablet, sublingual place 1 tablet by sublingual route every day allow to dissolve slowly in mouth without chewing or swallowing 0 0 6 025 Discontin ued(Alter alis therapy) omeprazole (PriLOSEC) 40 mg capsule take 1 capsule by oral route every day before a meal 0 0 6 025 Discontin ued(Alter alis therapy) benzocaine (ORABASE-B) 20 % paste Apply to mouth or throat bid prn 1 Tube 8 025 Discontin ued(Patie nt Reported) phenylephrine-ac etaminophen-GG 5-325-200 mg tablet 025 Discontin ued(Patie nt Reported) diclofenac sodium (Voltaren) 1 % gel Apply 4 g topically 4 (four) times a day as needed (pain) 300 g 2 0 025 Discontin ued(Patie nt Reported) metoprolol XL (TOPROL-XL) 50 mg extended release tablet Take 50 mg by mouth daily 1 025 Discontin ued(Patie nt Reported) baclofen (LIORESAL) 10 mg tablet TAKE 1 TABLET THREE TIMES A DAY NEEDED FOR MUSCLE SPASMS 90 tablet 2 4 025 Discontin ued(Patie nt Reported) Otrexup, PF, 25 mg/0.4 mL subcutaneous injection INJECT 0.4 ML (25 MG) UNDER THE SKIN EVERY 7 DAYS 1.6 mL 1 5 025 Discontin ued(Reord er) Active Problems Problem Noted Date Diagnosed Date Metatarsalgia of right foot 12/26/2023 Neck pain 11/28/2020 Overview (02/27/2021): XR c-spine (12/05/2020): moderate degenerative facet joint changes throughout the cervical spine. Mild to moderate disc space narrowing at C5-6 level. Findings have mildly progressed as compared to prior exam on 03/07/18. Assessment & Plan (06/11/2022 2:04 PM CDT): XR c-spine (12/05/2020): moderate degenerative facet joint changes throughout the cervical spine. Mild to moderate disc space narrowing at C5-6 level. Findings have mildly progressed as compared to prior exam on 03/07/18. PT order given at previous visit. Pt feels symptoms are improved with Rinvoq so will monitor for recurrence. Assessment & Plan (03/12/2022 3:18 PM CDT): XR c-spine (12/05/2020): moderate degenerative facet joint changes throughout the cervical spine. Mild to moderate disc space narrowing at C5-6 level. Findings have mildly progressed as compared to prior exam on 03/07/18. PT order given at previous visit. Pt feels symptoms are improved with Rinvoq so will monitor for recurrence. Assessment & Plan (12/11/2021 3:01 PM GUIDE FOREIGN TOUR): XR c-spine (12/05/2020): moderate degenerative facet joint changes throughout the cervical spine. Mild to moderate disc space narrowing at C5-6 level. Findings have mildly progressed as compared to prior exam on 03/07/18. PT order given at previous visit. Assessment & Plan (11/06/2021 2:03 PM GUIDE FOREIGN TOUR): XR c-spine (12/05/2020): moderate degenerative facet joint changes throughout the cervical spine. Mild to moderate disc space narrowing at C5-6 level. Findings have mildly progressed as compared to prior exam on 03/07/18. PT order given at previous visit. Assessment & Plan (03/06/2021 1:55 PM CDT): XR c-spine (12/05/2020): moderate degenerative facet joint changes throughout the cervical spine. Mild to moderate disc space narrowing at C5-6 level. Findings have mildly progressed as compared to prior exam on 03/07/18. Advised patient to start PT. Assessment & Plan (11/28/2020 5:02 PM GUIDE FOREIGN TOUR): Pain when turning head to the right. Will also notice pain radiate into her shoulder suggesting cervical radiculopathy. Will order x-ray to evaluate for DJD. Depending on results, may consider PT vs pain management. Start baclofen 10mg TID prn muscle spasms. 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 Moderate degenerative facet joint changes. Mild disc space narrowing at L4-5. Arthritic changes have progressed compared to prior study dated 04/29/18. 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 Moderate degenerative facet joint changes. Mild disc space narrowing at L4-5. Arthritic changes have progressed compared to prior study dated 04/29/18. Offered PT which she defers. 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 Moderate degenerative facet joint changes. Mild disc space narrowing at L4-5. Arthritic changes have progressed compared to prior study dated 04/29/18. Offered PT which she defers. 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 Moderate degenerative facet joint changes. Mild disc space narrowing at L4-5. Arthritic changes have progressed compared to prior study dated 04/29/18. Notes pain that she feels is exacerbated by bilateral foot pain and affecting her gait. Recommend PT however she deferred. 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 Moderate degenerative facet joint changes. Mild disc space narrowing at L4-5. Arthritic changes have progressed compared to prior study dated 04/29/18. Notes pain that she feels is exacerbated by bilateral foot pain and affecting her gait. Recommend PT however she defers at this time. 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 Moderate degenerative facet joint changes. Mild disc space narrowing at L4-5. Arthritic changes have progressed compared to prior study dated 04/29/18. Notes pain that she feels is exacerbated by bilateral foot pain and affecting her gait. Recommend PT however she defers at this time. 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 Moderate degenerative facet joint changes. Mild disc space narrowing at L4-5. Arthritic changes have progressed compared to prior study dated 04/29/18. Given PT order at previous visit. Pt feels symptoms are improved with Rinvoq so will monitor for recurrence. 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 Moderate degenerative facet joint changes. Mild disc space narrowing at L4-5. Arthritic changes have progressed compared to prior study dated 04/29/18. Given PT order at previous visit. Pt feels symptoms are improved with Rinvoq so will monitor for recurrence. 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 Moderate degenerative facet joint changes. Mild disc space narrowing at L4-5. Arthritic changes have progressed compared to prior study dated 04/29/18. Given PT order at previous visit. 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 Moderate degenerative facet joint changes. Mild disc space narrowing at L4-5. Arthritic changes have progressed compared to prior study dated 04/29/18. Given PT order at previous visit. 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 Moderate degenerative facet joint changes. Mild disc space narrowing at L4-5. Arthritic changes have progressed compared to prior study dated 04/29/18. Advised patient to start PT. Order given at previous visit. Assessment & Plan (11/28/2020 5:04 PM GUIDE FOREIGN TOUR): Pain originating the R side low back/SI that radiates into the buttock and to the posterior mid-thigh and occasionally right groin suggesting degenerative pain vs sciatica. Will order x-ray of lumbar spine to evaluate for DJD. Depending on results will consider PT, MRI vs pain management. Start baclofen 10mg TID prn pain. skilled nursing current use of therapeutic drug 2018 Overview (03/01/2019): Quantiferon negative: 02/2019 Hepatitis negative: 10/2015 CXR negative: 10/2015 Assessment & Plan (02/11/2025 11:16 AM CDT): Quantiferon negative: 02/2019 Hepatitis negative: 10/2015 CXR negative: 10/2015 Simponi aria - loss of benefit. Orencia IV - nausea Assessment & Plan (11/12/2024 11:02 AM GUIDE FOREIGN TOUR): Quantiferon negative: 02/2019 Hepatitis negative: 10/2015 CXR negative: 10/2015 Simponi aria - loss of benefit. Orencia IV - nausea Assessment & Plan (07/25/2024 1:36 PM CDT): Quantiferon negative: 02/2019 Hepatitis negative: 10/2015 CXR negative: 10/2015 Simponi aria - loss of benefit. Orencia IV - nausea Assessment & Plan (04/16/2024 1:51 PM CDT): Quantiferon negative: 02/2019 Hepatitis negative: 10/2015 CXR negative: 10/2015 Simponi aria - loss of benefit. Orencia IV - nausea Assessment & Plan (12/09/2023 2:03 PM GUIDE FOREIGN TOUR): Quantiferon negative: 02/2019 Hepatitis negative: 10/2015 CXR negative: 10/2015 Simponi aria - loss of benefit. Orencia IV - nausea Assessment & Plan (08/08/2023 3:30 PM CDT): Quantiferon negative: 02/2019 Hepatitis negative: 10/2015 CXR negative: 10/2015 Simponi aria - loss of benefit. Orencia IV - nausea Flu shot today. Recommend COVID booster. Assessment & Plan (06/13/2023 2:15 PM CDT): Quantiferon negative: 02/2019 Hepatitis negative: 10/2015 CXR negative: 10/2015 Simponi aria - loss of benefit. Orencia IV - nausea Assessment & Plan (03/14/2023 3:59 PM CDT): Quantiferon negative: 02/2019 Hepatitis negative: 10/2015 CXR negative: 10/2015 Simponi aria - loss of benefit. Orencia IV - nausea Assessment & Plan (12/14/2022 2:56 PM GUIDE FOREIGN TOUR): Quantiferon negative: 02/2019 Hepatitis negative: 10/2015 CXR negative: 10/2015 Simponi aria - loss of benefit. Orencia IV - nausea Assessment & Plan (09/14/2022 2:57 PM GUIDE FOREIGN TOUR): Quantiferon negative: 02/2019 Hepatitis negative: 10/2015 CXR negative: 10/2015 Simponi aria - loss of benefit. Orencia IV - nausea Assessment & Plan (06/11/2022 2:04 PM CDT): Quantiferon negative: 02/2019 Hepatitis negative: 10/2015 CXR negative: 10/2015 Simponi aria - loss of benefit. Orencia IV - nausea Assessment & Plan (03/12/2022 3:17 PM CDT): Quantiferon negative: 02/2019 Hepatitis negative: 10/2015 CXR negative: 10/2015 Simponi aria - loss of benefit. Orencia IV - nausea Assessment & Plan (12/11/2021 3:01 PM GUIDE FOREIGN TOUR): Quantiferon negative: 02/2019 Hepatitis negative: 10/2015 CXR negative: 10/2015 Simponi aria - loss of benefit. Orencia IV - nausea Assessment & Plan (11/06/2021 2:02 PM GUIDE FOREIGN TOUR): Quantiferon negative: 02/2019 Hepatitis negative: 10/2015 CXR negative: 10/2015 Simponi aria - loss of benefit. Orencia IV - nausea Assessment & Plan (09/04/2021 2:14 PM GUIDE FOREIGN TOUR): Quantiferon negative: 02/2019 Hepatitis negative: 10/2015 CXR negative: 10/2015 Simponi aria - loss of benefit. Orencia IV - nausea Assessment & Plan (06/05/2021 1:45 PM CDT): Quantiferon negative: 02/2019 Hepatitis negative: 10/2015 CXR negative: 10/2015 Simponi aria - loss of benefit. Orencia IV - nausea Assessment & Plan (03/06/2021 1:08 PM CDT): Quantiferon negative: 02/2019 Hepatitis negative: 10/2015 CXR negative: 10/2015 Simponi aria - loss of benefit. Orencia IV - nausea Assessment & Plan (11/28/2020 1:23 PM GUIDE FOREIGN TOUR): Quantiferon negative: 02/2019 Hepatitis negative: 10/2015 CXR negative: 10/2015 Simponi aria - loss of benefit. Orencia IV - nausea Assessment & Plan (07/08/2020 1:25 PM CDT): Quantiferon negative: 02/2019 Hepatitis negative: 10/2015 CXR negative: 10/2015 Simponi aria - loss of benefit. Orencia IV - nausea Assessment & Plan (04/07/2020 2:48 PM CDT): Quantiferon negative: 02/2019 Hepatitis negative: 10/2015 CXR negative: 10/2015 Simponi aria - loss of benefit. Orencia IV - nausea Assessment & Plan (01/07/2020 1:45 PM CDT): Quantiferon negative: 02/2019 Hepatitis negative: 10/2015 CXR negative: 10/2015 Simponi aria - loss of benefit. Orencia IV - nausea Assessment & Plan (10/25/2019 3:22 PM GUIDE FOREIGN TOUR): Quantiferon negative: 02/2019 Hepatitis negative: 10/2015 CXR negative: 10/2015 Simponi aria - loss of benefit. Orencia IV - nausea Assessment & Plan (08/22/2019 4:30 PM CDT): Quantiferon negative: 02/2019 Hepatitis negative: 10/2015 CXR negative: 10/2015 Simponi aria - loss of benefit. Assessment & Plan (05/01/2019 1:57 PM CDT): Quantiferon negative: 02/2019 Hepatitis negative: 10/2015 CXR negative: 10/2015 Assessment & Plan (02/27/2019 2:40 PM CDT): Quantiferon negative: 01/2018, recheck today. Hepatitis negative: 10/2015 CXR negative: 10/2015 Subluxation of metatarsophal angeal joint of unspecified toe(s), sequela 03/07/2018 Assessment & Plan (03/07/2018 4:22 PM CDT): She does have subluxation involving the right 1st MTP joint medially overlapping the 2nd and 3rd digits with subluxation of these toes as well. She has ongoing pain throughout the toes with difficulty ambulating at times. She is status post surgical intervention with pinning of these toes although this did not take. She is requesting reevaluation by a foot surgeon. Will refer her to Dr. Darren Fernandes of podiatry for her ongoing pain in her toes with subluxation. Will obtain updated x-rays of the bilateral feet in anticipation of podiatry evaluation. Foot pain, bilateral 11/07/2017 Overview (11/12/2024): 01/13/24: S/p R 2nd/3rd metatarsal head resection 05/31/24: S/p resection of L 1st metatarsal head and 2nd-5th metatarsal had of left foot 08/09/24: s/p resection of R 1st, 4th, 5th metatarsal head rection S/p surgical intervention on right MTP joints for subluxation with no benefit. Still with significant subluxation/deformities right 1st-3rd mtp joints and to lesser degree left 1st-2nd mtp joints; has difficult time ambulating due to pain. Pt not wanting additional surgery. Assessment & Plan (02/11/2025 11:16 AM CDT): S/p R 2nd/3rd metatarsal head resection on 01/13/24. S/p L 1st-5th metatarsal head resection on 05/31/24. S/p R 1st, 4th, and 5th metatarsal head resection. Assessment & Plan (11/12/2024 11:03 AM GUIDE FOREIGN TOUR): S/p R 2nd/3rd metatarsal head resection on 01/13/24. S/p L 1st-5th metatarsal head resection on 05/31/24. S/p R 1st, 4th, and 5th metatarsal head resection. Assessment & Plan (07/25/2024 2:32 PM CDT): S/p R 2nd/3rd metatarsal head resection on 01/13/24. S/p L 1st-5th metatarsal head resection on 05/31/24. Having surgery on right foot on 08/09. Assessment & Plan (04/16/2024 1:52 PM CDT): Previously had surgery for R 1st MTP subluxation however did not take. S/p R 2nd/3rd metatarsal head resection on 01/13/24. Assessment & Plan (12/09/2023 2:55 PM GUIDE FOREIGN TOUR): Previously had surgery for R 1st MTP subluxation however did not take. She continues to have significant deformities bilaterally which cause difficulty with ambulation. Established with podiatry and scheduled for surgery on 01/12 for the right foot. Advised to hold Humira 2 weeks before and 2 weeks after surgery. Assessment & Plan (08/08/2023 3:32 PM CDT): Previously had surgery for R 1st MTP subluxation however did not take. She continues to have significant deformities bilaterally which cause difficulty with ambulation. Previously given referral to ortho foot/ankle Dr. Elkin Merino at [facility] for re-evaluation however patient is hesitant to consider as she notes deformity continues progress despite past surgical interventions. She states she has an upcoming visit to discuss surgical options with foot surgeon. Assessment & Plan (09/14/2022 2:57 PM GUIDE FOREIGN TOUR): Previously had surgery for R 1st MTP subluxation however did not take. She continues to have significant deformities bilaterally which cause difficulty with ambulation. Previously given referral to ortho foot/ankle Dr. Elkin Merino at [facility] for re-evaluation however patient is hesitant to consider as she notes deformity continues progress despite past surgical interventions. Assessment & Plan (12/11/2021 4:31 PM GUIDE FOREIGN TOUR): Previously had surgery for R 1st MTP subluxation however did not take. She continues to have significant deformities bilaterally which cause difficulty with ambulation. Patient is wanting to consider surgical re-evaluation. Will reprint referral to ortho foot/ankle Dr. Elkin Merino at [facility]. Assessment & Plan (09/04/2021 2:16 PM GUIDE FOREIGN TOUR): Previously had surgery for R 1st MTP subluxation however did not take. She continues to have significant deformities bilaterally which cause difficulty with ambulation. Patient is wanting to consider surgical re-evaluation. Will give referral to ortho foot/ankle Dr. Elkin Merino at [facility]. Assessment & Plan (11/07/2017 1:58 PM GUIDE FOREIGN TOUR): Her feet pain appear to be her biggest complaint and she has a difficult time ambulating at times due to pain. She is s/p surgical intervention for subluxation of her right 1st mtp joint which did not take and she has severe subluxation involving right 1st-3rd toes and to lesser degree left 1st-2nd toes. Pt not wanting additional surgery per pt. Will cont current RA regimen although with the degree of subluxation which causes ambulating difficult and painful, she would likely benefit from surgical re-evaluation which she does not want to do. Will refer her to OT at her request to see if they can help her with being able to do some of her ADLs better. Is noted pt is looking into getting a motorized scooter to help her get around which I suspect she would benefit from due to the degree of deformities in her feet. Rheumatoid arthritis of [facility] sites with negative rheumatoid factor 04/14/2017 Overview (12/24/2019): oral MTX caused GI upset Erosive changes in bilat hands, wrists, feet per xray Xray bilat hands (03/07/18): moderate degenerative changes with subcortical cysts Xray bilat feet (03/07/18): mild/moderate degenerative changes with subcortical cysts; lateral deviation of mtps with marked hallus valgus 1st MTP US right foot/ankle reveals erosive changes over 1st and 5th MTP joints with synovitis over MTP joints and mild doppler activity involving R 1st MTP joint MTX (rasuvo), Simponi aria Folic acid 3 mg daily - alopecia - if alopecia worsens dc mtx HCQ made her feel ill Vectra DA 37 per labs (11/2016) Vectra 35 (11/07/17) Saw ortho hand and ?wants to fuse R 5th digit Orencia IV started 07/12/19 - stopped 10/2019 Remicade started 11/13/2019 (0,2,6 then [id number]) Assessment & Plan (02/11/2025 11:38 AM CDT): Low-moderate cdai. Started Humira in 05/2023 without any s/e. Some mild increased synovitis noted on exam today however overall symptoms remain stable. -Advised to call should she notice flare between visits. -Continue Humira SQ [id number]. -Continue Otrexup 25mg SQ weekly and folic acid 3mg daily. -Routine labs today. -Follow up in 3 months. Sooner if needed. Assessment & Plan (11/12/2024 12:07 PM GUIDE FOREIGN TOUR): Low-moderate cdai. Started Humira in 05/2023 without any s/e and continues to have noticeable improvement of synovitis and tenderness on today's peripheral exam. -Continue Humira SQ [id number]. -Continue Otrexup 25mg SQ weekly and folic acid 3mg daily. -Routine labs today. -Follow up in 3-4 months. Sooner if needed. Assessment & Plan (07/25/2024 2:33 PM CDT): Low cdai. Started Humira in 05/2023 without any s/e and continues to have noticeable improvement of synovitis and tenderness on today's peripheral exam. Infusion reaction to Avsola on 10/02/21 (previously on Remicade w/o s/e and doing well). Neck and low back pain are unrelated to RA and due to degenerative changes as seen on XR. Continue Humira SQ [id number] (hold for 2 weeks before and 2 weeks after foot surgery). Continue Otrexup 25mg SQ weekly and folic acid 3mg daily. Routine labs today. Follow up in 3-4 months. Sooner if needed. Assessment & Plan (04/16/2024 2:53 PM CDT): Low cdai. Started Humira in 05/2023 without any s/e and continues to have noticeable improvement of synovitis and tenderness on today's peripheral exam. Infusion reaction to Avsola on 10/02/21 (previously on Remicade w/o s/e and doing well). Neck and low back pain are unrelated to RA and due to degenerative changes as seen on XR. Continue Humira SQ [id number] (hold for 2 weeks before and 2 weeks after foot surgery). Continue Otrexup 25mg SQ weekly and folic acid 3mg daily. Routine labs today. Follow up in 3-4 months. Sooner if needed. Assessment & Plan (12/09/2023 2:55 PM GUIDE FOREIGN TOUR): Moderate cdai. Started Humira in 05/2023 without any s/e and continues to have noticeable improvement of synovitis and tenderness on today's peripheral exam. Infusion reaction to Avsola on 10/02/21 (previously on Remicade w/o s/e and doing well). Neck and low back pain are unrelated to RA and due to degenerative changes as seen on XR. Continue Humira SQ [id number] (hold for 2 weeks before and 2 weeks after foot surgery). Continue Otrexup 25mg SQ weekly and folic acid 3mg daily. Routine labs today. Follow up in 3-4 months. Sooner if needed. Seen with Dr. Mcwilliams. Assessment & Plan (08/08/2023 3:29 PM CDT): Moderate cdai. Started Humira in 05/2023 without any s/e and has noticeable improvement of synovitis and tenderness on today's peripheral exam. Infusion reaction to Avsola on 10/02/21 (previously on Remicade w/o s/e and doing well). Neck and low back pain are unrelated to RA and due to degenerative changes as seen on XR. Continue Humira SQ [id number]. Continue Otrexup 25mg SQ weekly and folic acid 3mg daily. Routine labs today. Follow up in 3-4 months. Sooner if needed. Assessment & Plan (06/13/2023 2:20 PM CDT): Moderate cdai. Started Rinvoq 10/2021 with notable improvement of peripheral joint synovitis and tenderness but lately has been having worsening synovitis and tenderness on exam suggesting loss of benefit. Discussed humira which she is open to trying next. Infusion reaction to Avsola on 10/02/21 (previously on Remicade w/o s/e and doing well). Neck and low back pain are unrelated to RA and due to degenerative changes as seen on XR. Stop Rinvoq and start approval of Humira 40mg SQ [id number]. Patient advised of the side effects of the medication, including but not limited to increase risk of infection, rash, injection site reaction. Continue Rasuvo 25mg SQ weekly and folic acid 3mg daily. Routine labs today. Follow up in 2-3 months. Sooner if needed. Seen with Dr. Mcwilliams. Assessment & Plan (03/14/2023 3:59 PM CDT): Moderate cdai. Started Rinvoq 10/2021 with notable improvement of peripheral joint synovitis and tenderness suggesting an overall good response to Rinvoq but then had COVID in 10/2022 and had to hold meds which did cause a flare. Today, she has mild synovitis without much tenderness noted on peripheral exam. Infusion reaction to Avsola on 10/02/21 (previously on Remicade w/o s/e and doing well). Neck and low back pain are unrelated to RA and due to degenerative changes as seen on XR. Continue Rinvoq 15mg daily. Continue Rasuvo 25mg SQ weekly and folic acid 3mg daily. Routine labs today. Follow up in 3 months. Sooner if needed. Seen with Dr. Mcwilliams. Assessment & Plan (12/14/2022 2:56 PM GUIDE FOREIGN TOUR): Moderate cdai. Started Rinvoq 10/2021 with notable improvement of peripheral joint synovitis and tenderness suggesting an overall good response to Rinvoq but then had COVID in 10/2022 and had to hold meds. Today, has some increased synovitis and tenderness suggesting a flare. Offered kenalog IM injection however patient defers. Infusion reaction to Avsola on 10/02/21 (previously on Remicade w/o s/e and doing well). Neck and low back pain are unrelated to RA and due to degenerative changes as seen on XR. Continue Rinvoq 15mg daily. Continue Rasuvo 25mg SQ weekly and folic acid 3mg daily. Routine labs today. Follow up in 3 months. Sooner if needed. Seen with Dr. Mcwilliams. Assessment & Plan (09/14/2022 2:55 PM GUIDE FOREIGN TOUR): Low cdai. Started Rinvoq 10/2021 with notable improvement of peripheral joint synovitis and tenderness suggesting an overall good response to Rinvoq. Has only had 1 flare since initiation of Rinvoq which appeared to possibly be triggered by a sinus infection. Infusion reaction to Avsola on 10/02/21 (previously on Remicade w/o s/e and doing well). Neck and low back pain are unrelated to RA and due to degenerative changes as seen on XR. Continue Rinvoq 15mg daily. Continue Rasuvo 25mg SQ weekly and folic acid 3mg daily. Routine labs today. Follow up in 3 months. Sooner if needed. Assessment & Plan (06/11/2022 2:33 PM CDT): Moderate cdai. Started Rinvoq 10/2021 with notable improvement of peripheral joint synovitis and tenderness suggesting an overall good response to Rinvoq. Has only had 1 flare since initiation of Rinvoq which appears to possibly be triggered by recent sinus infection. Infusion reaction to Avsola on 10/02/21 (previously on Remicade w/o s/e and doing well). Neck and low back pain are unrelated to RA and due to degenerative changes as seen on XR. Continue Rinvoq 15mg daily. Continue Rasuvo 25mg SQ weekly and folic acid 3mg daily. Routine labs today. Follow up in 3 months. Sooner if needed. Seen with Dr. Mcwilliams. Assessment & Plan (03/12/2022 3:17 PM CDT): Moderate cdai 11. Started Rinvoq 10/2021 with notable improvement of peripheral joint synovitis and tenderness suggesting an overall good response to Rinvoq. Infusion reaction to Avsola on 10/02/21 (previously on Remicade w/o s/e and doing well). Neck and low back pain are unrelated to RA and due to degenerative changes as seen on XR. Had a small flare involving the b/l hands during recent sinus infection but has since resolved. Continue Rinvoq 15mg daily. Continue Rasuvo 25mg SQ weekly and folic acid 3mg daily. Routine labs today. Follow up in 3 months. Sooner if needed. Assessment & Plan (12/11/2021 4:31 PM GUIDE FOREIGN TOUR): Low cdai. Started Rinvoq after last visit without s/e and today has notable improvement of peripheral joint synovitis and tenderness suggesting an overall good response to Rinvoq. Infusion reaction to Avsola on 10/02/21 (previously on Remicade w/o s/e and doing well). Neck and low back pain are unrelated to RA and due to degenerative changes as seen on XR. Continue Rinvoq 15mg daily. Continue Rasuvo 25mg SQ weekly and folic acid 3mg daily. Routine labs today. Follow up in 3 months. Sooner if needed. Assessment & Plan (11/06/2021 3:17 PM GUIDE FOREIGN TOUR): High cdai. Infusion reaction to Avsola on 10/02/21 (previously on Remicade w/o s/e). Worsened synovitis and joint tenderness noted on peripheral exam today. Neck and low back pain are unrelated to RA and due to degenerative changes as seen on XR. Was previously doing well until infusion reaction. Discussed Rinvoq which patient is amenable to. Will start approval of Rinvoq 15mg daily. Discussed potential side effects of the medication, including but not limited to increased risk of infection, headache, diarrhea, bowel perforation, and/or lymphoma risk. Patient provided samples today. Continue Rasuvo 25mg SQ weekly and folic acid 3mg daily. Will check routine labs at next visit. Follow up at next scheduled visit. Sooner if needed. Seen with Dr. Mcwilliams. Offered prednisone taper or kenalog IM due to burden of disease however patient defers at this time due to hx of mood changes, s/e. Assessment & Plan (09/04/2021 2:08 PM GUIDE FOREIGN TOUR): Moderate cdai. Stable synovitis and joint tenderness noted on peripheral exam today. Neck and low back pain are unrelated to RA and due to degenerative changes as seen on XR. Reported improvement of joint pain with increased Remicade dose. Continue Remicade 8mg/kg (700mg) IV [id number]. Continue Rasuvo 25mg SQ weekly and folic acid 3mg daily. Routine labs today. Follow up in 3 months. Sooner if needed. Assessment & Plan (06/05/2021 1:46 PM CDT): Moderate cdai. Synovitis with tenderness noted on peripheral exam today. Neck and low back pain are unrelated to RA and due to degenerative changes as seen on XR. Advised to start PT at her last visit. Noticing improvement of joint pain with increased Remicade dose. Continue Remicade 8mg/kg (700mg) IV [id number]. Continue Rasuvo 25mg SQ weekly and folic acid 3mg daily. Routine labs today. Follow up in 3 months. Sooner if needed. Assessment & Plan (03/06/2021 1:58 PM CDT): Moderate cdai. Synovitis with tenderness noted on peripheral exam today. Discussed that neck and low back pain are unrelated to RA and due to degenerative changes as seen on XR. Advised to start PT. Increase Remicade 8mg/kg (700mL) IV [id number]. Continue Rasuvo 25mg SQ weekly and folic acid 3mg daily. Routine labs today. Follow up in 3 months. Sooner if needed. Seen with Dr. Mcwilliams. Assessment & Plan (11/28/2020 4:59 PM GUIDE FOREIGN TOUR): Moderate cdai. Synovitis without tenderness noted on peripheral exam today. Improvement of synovitis with increased dose but still noticing pain. Discussed that neck and low back pain are likely unrelated to RA and more so the result of degenerative changes. Increase Remicade 7mg/kg IV [id number]. Continue Rasuvo 25mg SQ weekly and folic acid 3mg daily. Routine labs today. Follow up in 3 months. Sooner if needed. Seen with Dr. Mcwilliams. Assessment & Plan (07/08/2020 1:25 PM CDT): Moderate cdai. Synovitis with tenderness noted on peripheral exam today. Notes improvement of overall pain since starting Remicade but feels the overall benefit has plateaued. Increase Remicade 6mg/kg IV [id number]. Continue Rasuvo 25mg SQ weekly and folic acid 3mg daily. Routine labs today. Follow up in 3 months. Sooner if needed. Assessment & Plan (04/07/2020 3:12 PM CDT): Moderate cdai. Multiple swollen with few tender joints noted on peripheral exam today. Notes improvement of overall pain since starting Remicade. Increase Remicade 5mg/kg IV [id number]. Continue Rasuvo 25mg SQ weekly and folic acid 3mg daily. Routine labs today. Follow up in 3 months. Sooner if needed. Seen with Dr. Mcwilliams. Assessment & Plan (01/07/2020 2:42 PM CDT): Moderate cdai. Started Remicade 11/13/2019. Continues to have synovitis but improved tenderness noted on peripheral exam today. Loss of benefit with simponi aria. Continue Remicade 3mg/kg IV [id number], Rasuvo 25mg SQ weekly, and folic acid 3mg daily. Routine labs today. Follow up in 3 months. Sooner if needed. Seen with Dr. Mcwilliams. Assessment & Plan (10/25/2019 4:49 PM GUIDE FOREIGN TOUR): Moderate cdai. Several swollen joints without tenderness noted on peripheral exam today. Notes nausea for 3 days and a sore on her tongue since starting orencia IV. Reported loss of benefit with simponi aria. Will start approval of Remicade 3mg/kg IV [id number]. Continue Rasuvo 25mg SQ weekly, and folic acid 3mg daily. Routine labs today. Follow up in 2 months. Sooner if needed. Seen with Dr. Mcwilliams. Assessment & Plan (08/22/2019 4:28 PM CDT): Moderate cdai. Continues to have swelling and joint pain with minimal tenderness noted on exam today. Started Orencia IV 07/12/19 and has finished the loading dose. Continue Orencia IV [id number], Rasuvo 25mg SQ weekly, and folic acid 3mg daily. Flu shot today. Routine labs today. Follow up in 3 months. Sooner if needed. Assessment & Plan (05/01/2019 2:30 PM CDT): High cdai. Feels that she has worsened since last visit and wants to discuss other treatment options. HCQ made her feel ill. Has remained on Rasuvo and simponi aria since 2016. Swelling and tenderness noted in several peripheral joints on exam today. Will stop simponi aria IV and start approval for Orencia IV. Continue Rasuvo 25mg SQ weekly and folic acid 3mg daily. Routine labs today. Follow up in 2 months. Sooner if needed. Seen with Dr. Mcwilliams. Assessment & Plan (02/27/2019 2:40 PM CDT): Moderate cdai. Continues to have tenderness and some swelling across a few MCP and PIP joints bilaterally. Due for simponi aria IV in a few weeks and reports improvement of pain after infusions. Has not been able to wear her specially made showed due to her toe deformities and reports she has an appointment to have her shoes fixed. Patient continues to feel that she is doing well enough with her current treatment regimen. Will continue methotrexate (rasuvo) 25mg SQ weekly, folic acid 3mg daily, and Simponi aria IV 2mg/kg [id number]. Routine labs today as well as recheck TB quant. Follow up in 3 months. Sooner if needed. Assessment & Plan (12/01/2018 2:56 PM GUIDE FOREIGN TOUR): Moderate cdai. Had simponia aria IV 2 weeks ago and reports minimal joint pain. Notable swelling in several joints bilaterally with tenderness on exam today. Unable to wear specially made shoes due to increased swelling of her left lateral foot. Has stopped using the splint for her right hand as she felt it was not helping. Discussed adjusting medication for additional benefit in regards to her joint complaints, however she feels that she is doing well enough and wants to defer any changes. Will continue methotrexate (rasuvo) 25mg SQ weekly, folic acid 3mg daily, and Simponi aria IV 2mg/kg [id number]. Routine labs today. Follow up in 3 months. Sooner if needed. Seen with Dr. Mcwilliams. Assessment & Plan (08/31/2018 3:59 PM GUIDE FOREIGN TOUR): She reports she is feeling better now than she has in quite some time. She still has some pain in her hands, wrists, and toes although she was recently placed in a splint for her right hand, fingers, and wrist which has helped. She was also fitted for insoles for her feet which have helped quite a bit with this as well. She does have some chronic changes in her fingers and toes as well as mild synovitis over several MCP joints on exam with some tenderness throughout several MCPs PIP joints as well as MTP joints. I did discuss with her adjusting her medications to see if we can offer her additional benefit in regards to her joint complaints although she feels that she is doing well enough and wants to defer any change. Will continue methotrexate (rasuvo) 25 mg subcutaneous weekly, folic acid 3 mg daily, Simponi aria IV infusion every 8 weeks. Obtain labs as below. Follow-up in 3 months. Assessment & Plan (05/25/2018 1:31 PM CDT): She appears to be doing fairly well clinically and has no new clinical complaints. She does report the pain in her hands, wrists, and feet are doing fairly well. She is more concerned about her joint chronic deformities she has and has seen orthopedic surgery who had recommended fusion of several of her fingers mainly the right 4th and 5th digits although she is wanting to defer this as she feels that this will not offer any benefit. She recently got orthotics for her feet which has helped quite a bit with the pain in her feet and is helping with her ambulation as well. She does have some mild synovitis on exam although he feels that she is doing well enough and does feel that the Simponi aria infusion is working well. Continue methotrexate (rasuvo) 25 mg subcutaneous weekly, folic acid 3 mg daily, and Simponi aria IV infusion every 8 weeks. Will obtain labs as below. Follow-up in 3 months. Assessment & Plan (03/30/2018 3:42 PM CDT): Patient still with ongoing pain complaints throughout the hands, wrist, feet. She does have chronic deformities throughout these joints although overall symptoms do appear stable. She did stop hydroxychloroquine as she felt this was making her feel ill. Symptoms currently appear stable other than the increased pain in her pelvic girdle of unknown etiology. Will continue methotrexate (rasuvo) 25 mg subcutaneous weekly, folic acid 3 mg daily, and Simponi aria IV infusion. Obtain labs as below. Assessment & Plan (03/07/2018 4:18 PM CDT): She had been doing fairly well up until 2 days ago when she had missed a step and fell down 2 steps landing forward on her hands knees and hurting her neck per her reports. Since the fall she reports that she has had increased pain everywhere to clear hands knees and feet as well as the neck. She does have some swelling over the right 2nd and 3rd MCP joint of this is also over the dorsum of the hand where there is an abrasion at suspect swelling is from the fall. She reports that there was no swelling there prior to the fall. She is tender essentially everywhere although this is not unusual for her. She has no obvious trauma from the fall although she may have triggered a rheumatoid arthritis flare up. Will obtain updated x-rays of bilateral hands and feet as well as the bilateral knees and cervical spine status post fall. Will continue Simponi Aria 2 milligrams/kilogram IV infusion every 8 weeks as well as the methotrexate (rasuvo) 25 mg subcutaneous weekly folic acid 3 mg daily and hydroxychloroquine 200 mg b.i.d.. Due to her disease burden will administer triamcinolone 100 mg intramuscular today to see if this can calm down her flare up. Will have her keep her scheduled appointment in April for follow-up. Assessment & Plan (02/09/2018 11:27 AM CDT): Having increased pain and swelling, worse in hands and has obvious synovitis over mcp, pip joints,wrists. Was unable to get simponi aria infusion last week due to elevated BP and MTX dose was decreased due to oral lesions and she feels this has caused sig worsened pain over last 1-2 weeks. Oral lesions resolved and she reports getting these before MTX so I am not convinced is from MTX. Will increase MTX (rasuvo) back up to 25 mg subcut weekly, cont folic acid 3 mg daily, HCQ 200 mg bid. BP imporved today so she is to schedule her simponi aria 2 mg/kg IV infusion and will cont this q8 weeks. Labs as below. f/u 3 months. Assessment & Plan (11/07/2017 2:01 PM GUIDE FOREIGN TOUR): Appears to be doing better with simponi aria infusion. She notices a great benefit after the infusion although 1-2 weeks prior to her scheduled dose she is aching more. Has mild synovitis over mcp joints although this is improved. Will cont simponis aria IV q8 weeks, MTX 25 mg (rasuvo) subcut weekly, folic acid 3 mg daily, HCQ 200 mg bid. Cont routine eye exams on HCQ. Labs as below including a Vectra DA . If Vectra elevated will consider switching simponi aria to orencia. Will refer to OT at her request as she has a difficult time doing ADLs. F/u 3 months. Assessment & Plan (08/08/2017 12:18 PM CDT): CDAI 32: High disease activity Appears much improved clinically since last visit in which MTX increased to 25 mg subcut weekly and HCQ started. Pt also feels benefit from the simponi aria infusion and noticed after her 3rd infusion she started to feel much better. Still with mild synovitis over several mcp, pip joints and wrists and generalized ttp which is difficult to appreciate due to her underlying FM . Will cont MTX 25 mg subcut weekly, folic acid 3 mg daily, HCQ 200 mg bid, simponi aria 2 mg/kg IV infusion q8 weeks. Labs as below. F/u 3 months. Assessment & Plan (06/21/2017 6:19 PM CDT): CDAI 14: Moderate disease activity Has pain in bilat wrists and occasional pain and stiffness in fingers, toes. Has mild swelling bilat wrists. Has chronic changes in hands and feet. Pt feels better after simponi aria infusion. Has been cleared to start HCQ per her eye doctor. Will start HCQ 200 mg bid. Will increase MTX to 25 mg subcut weekly, cont folic acid 3 mg daily, simponi aria 2 mg/mg IV infusion q8 weeks. Pt has some mild alopecia currently, if symptoms worsen with increased MTX will DC MTX altogether. Labs as below. F/u 6 weeks. Assessment & Plan (04/14/2017 5:11 PM CDT): CDAI 29: High disease activity She still has generalized joint complaints virtually everywhere although I am uncertain what is from her rheumatoid arthritis was from her fibromyalgia. Labs in November do reveal her Vectra DA was 37 revealing moderate disease activity. She has no obvious synovitis on exam today although does have tenderness virtually everywhere. She is maintained on methotrexate 20 mg subcutaneous weekly as well as Simponi artery a IV infusion. She did not obtain the eye exam and as instructed last visit to start the hydroxychloroquine therefore she remains off this at this point. She does report some subjective alopecia with the methotrexate. I did discuss with her stopping about the trucks 8 and starting the flutamide although at this point she wants to continue with the methotrexate. Will continue methotrexate 20 mg subcutaneous weekly and folic acid 3 mg daily. Continue Simponi Aria 2 milligrams/kilogram IV infusion every 2 months. She does report that she will get an eye exam and if she is cleared by her eye doctor to start hydroxychloroquine will start this at 200 mg b.i.d.. She was informed that if her alopecia worsens and she would like to discontinue the methotrexate and start leflunomide although at this point she does not want to pursue this at this point. Will obtain labs as below. Follow-up in 6 weeks. The Fibromyalgia 04/14/2017 Overview (04/14/2017): Previous gabapentin with no benefit. Lyrica started (04/14/17). Has not been on cymbalta, amitriptyline, savella Assessment & Plan (02/11/2025 11:16 AM CDT): Generalized soft tissue pain/tenderness. Continue lyrica 150mg BID and baclofen 10mg TID prn. Encouraged to participate in routine exercises which may benefit her chronic pain. Continue Voltaren gel up to 4 times daily prn as she does benefit from this. Assessment & Plan (11/12/2024 11:03 AM GUIDE FOREIGN TOUR): Generalized soft tissue pain/tenderness. Continue lyrica 150mg BID and baclofen 10mg TID prn. Encouraged to participate in routine exercises which may benefit her chronic pain. Continue Voltaren gel up to 4 times daily prn as she does benefit from this. Assessment & Plan (07/25/2024 2:33 PM CDT): Generalized soft tissue pain/tenderness. Continue lyrica 150mg BID and baclofen 10mg TID prn. Encouraged to participate in routine exercises which may benefit her chronic pain. Continue Voltaren gel up to 4 times daily prn as she does benefit from this. Assessment & Plan (04/16/2024 1:52 PM CDT): Generalized soft tissue pain/tenderness. Continue lyrica 150mg BID and baclofen 10mg TID prn. Encouraged to participate in routine exercises which may benefit her chronic pain. Continue Voltaren gel up to 4 times daily prn as she does benefit from this. Assessment & Plan (12/09/2023 2:53 PM GUIDE FOREIGN TOUR): Generalized soft tissue pain/tenderness. Continue lyrica 150mg BID and baclofen 10mg TID prn. Encouraged to participate in routine exercises which may benefit her chronic pain. Continue Voltaren gel up to 4 times daily prn as she does benefit from this. Assessment & Plan (08/08/2023 3:31 PM CDT): Generalized tender points on exam today. Continue lyrica 150mg BID and baclofen 10mg TID prn. Encouraged to participate in routine exercises which may benefit her chronic pain. Continue Voltaren gel up to 4 times daily prn as she does benefit from this. Assessment & Plan (06/13/2023 2:16 PM CDT): Generalized tender points on exam today. Continue lyrica 150mg BID and baclofen 10mg TID prn. Encouraged to participate in routine exercises which may benefit her chronic pain. Continue Voltaren gel up to 4 times daily prn as she does benefit from this. Assessment & Plan (03/14/2023 3:59 PM CDT): Generalized tender points on exam today. Continue lyrica 150mg BID and baclofen 10mg TID prn. Encouraged to participate in routine exercises which may benefit her chronic pain. Continue Voltaren gel up to 4 times daily prn as she does benefit from this. Assessment & Plan (12/14/2022 2:56 PM GUIDE FOREIGN TOUR): Generalized tender points on exam today. Continue lyrica 150mg BID and baclofen 10mg TID prn. Encouraged to participate in routine exercises which may benefit her chronic pain. Continue Voltaren gel up to 4 times daily prn as she does benefit from this. Assessment & Plan (09/14/2022 2:56 PM GUIDE FOREIGN TOUR): Few generalized tender points on exam today. Continue lyrica 150mg BID and baclofen 10mg TID prn. Encouraged to participate in routine exercises which may benefit her chronic pain. Continue Voltaren gel up to 4 times daily prn as she does benefit from this. Assessment & Plan (06/11/2022 2:04 PM CDT): Few generalized tender points on exam today. Continue lyrica 150mg BID and baclofen 10mg TID prn. Encouraged to participate in routine exercises which may benefit her chronic pain. Continue Voltaren gel up to 4 times daily prn as she does benefit from this. Assessment & Plan (03/12/2022 3:17 PM CDT): Few generalized tender points on exam today. Continue lyrica 150mg BID and baclofen 10mg TID prn. Encouraged to participate in routine exercises which may benefit her chronic pain. Continue Voltaren gel up to 4 times daily prn as she does benefit from this. Assessment & Plan (12/11/2021 3:00 PM GUIDE FOREIGN TOUR): Few generalized tender points on exam today. Continue lyrica 150mg BID and baclofen 10mg TID prn. Encouraged to participate in routine exercises which may benefit her chronic pain. Continue Voltaren gel up to 4 times daily prn as she does benefit from this. Assessment & Plan (11/06/2021 2:08 PM GUIDE FOREIGN TOUR): Few generalized tender points on exam today. Continue lyrica 150mg BID and baclofen 10mg TID prn. Encouraged to participate in routine exercises which may benefit her chronic pain. Continue Voltaren gel up to 4 times daily prn as she does benefit from this. Assessment & Plan (09/04/2021 2:14 PM GUIDE FOREIGN TOUR): Few generalized tender points on exam today. Continue lyrica 150mg BID and baclofen 10mg TID prn. Encouraged to participate in routine exercises which may benefit her chronic pain. Continue Voltaren gel up to 4 times daily prn as she does benefit from this. Assessment & Plan (06/05/2021 1:50 PM CDT): Few generalized tender points on exam today. Continue lyrica 150mg BID and baclofen 10mg TID prn. Encouraged to participate in routine exercises which may benefit her chronic pain. Continue Voltaren gel up to 4 times daily prn as she does benefit from this. Assessment & Plan (03/06/2021 1:53 PM CDT): Few generalized tender points on exam today. Continue lyrica 150mg BID. Encouraged to participate in routine exercises which may benefit her chronic pain. Continue Voltaren gel up to 4 times daily prn as she does benefit from this. Assessment & Plan (11/28/2020 1:28 PM GUIDE FOREIGN TOUR): Few generalized tender points on exam today. Continue lyrica 150mg BID. Encouraged to participate in routine exercises which may benefit her chronic pain. Continue Voltaren gel up to 4 times daily prn as she does benefit from this. Assessment & Plan (07/08/2020 1:24 PM CDT): Few generalized tender points on exam today. Continue lyrica 150mg BID. Encouraged to participate in routine exercises which may benefit her chronic pain. Continue Voltaren gel up to 4 times daily prn as she does benefit from this. Assessment & Plan (04/07/2020 3:13 PM CDT): Few generalized tender points on exam today. Continue lyrica 150mg BID. Encouraged to participate in routine exercises which may benefit her chronic pain. Continue Voltaren gel up to 4 times daily prn as she does benefit from this. Assessment & Plan (01/07/2020 1:50 PM CDT): Few generalized tender points on exam today and feels that the increased lyrica has helped. Continue lyrica 150mg BID. Encouraged to participate in routine exercises which may benefit her chronic pain. Continue Voltaren gel up to 4 times daily prn as she does benefit from this. Assessment & Plan (10/25/2019 3:23 PM GUIDE FOREIGN TOUR): Few generalized tender points on exam today and feels that the increased lyrica has helped. Continue lyrica 150mg BID. Encouraged to participate in routine exercises which may benefit her chronic pain. Continue Voltaren gel up to 4 times daily prn as she does benefit from this. Assessment & Plan (08/22/2019 4:24 PM CDT): Few generalized tender points on exam today and feels that the increased lyrica has helped. Continue lyrica 150mg BID. Encouraged to participate in routine exercises which may benefit her chronic pain. Continue Voltaren gel up to 4 times daily prn as she does benefit from this. Assessment & Plan (05/01/2019 1:58 PM CDT): Few generalized tender points on exam today and feels that the increased lyrica has helped. Continue lyrica 150mg BID. Encouraged to participate in routine exercises which may benefit her chronic pain. Continue Voltaren gel up to 4 times daily prn as she does benefit from this. Assessment & Plan (02/27/2019 1:31 PM CDT): Few generalized tender points on exam today and feels that the increased lyrica has helped. Continue lyrica 150mg BID. Encouraged to participate in routine exercises which may benefit her chronic pain. Continue Voltaren gel up to 4 times daily prn as she does benefit from this. Assessment & Plan (12/01/2018 2:58 PM GUIDE FOREIGN TOUR): Few generalized tender points on exam today. Has been taking Lyrica 75mg qam and 150mg qhs with benefit. Will increase lyrica 150mg BID and patient given co-pay card for lyrica. Encouraged to participate in routine exercise which may benefit her chronic pain. Continue Voltaren gel up to 4 times daily prn as she does benefit from this. Assessment & Plan (08/31/2018 4:01 PM GUIDE FOREIGN TOUR): She still has some generalized pain and fatigue with some generalized tenderness on exam today. Lyrica was attempted to be increased to 150 mg b.i.d. last visit although she reports she never received this from her pharmacy. She is concerned about the increase in potential side effects with an increased dose. Will increase her Lyrica slowly by doing 75 mg q.a.m. and 150 mg q.h.s.. She was encouraged to participate in routine exercise which may benefit her chronic pain. Continue Voltaren gel up to 4 times day as needed as this does help. Assessment & Plan (05/25/2018 1:33 PM CDT): She still has generalized pain, fatigue, and poor sleeping patterns as well as generalized tenderness on exam today. Her biggest pain is in her pelvic girdle although this is improved from last visit. Will increase her Lyrica to 150 mg b.i.d. to see if this can offer her additional benefit. She was encouraged to participate in routine exercise which may benefit her chronic pain. Continue Voltaren gel up to 4 times day as she feels this does offer her quite a bit of benefit as needed. Assessment & Plan (03/30/2018 3:44 PM CDT): She still hasgeneralized pain, fatigue, and poor sleeping patterns. She has generalized tenderness essentially everywhere to touch. Symptoms are stable however other than the increased pain in her pelvic girdle. If pain in her pelvic girdle do not improve with triamcinolone IM injection and workup is unremarkable will consider increasing the Lyrica. Otherwise will continue Lyrica 75 mg b.i.d. for now. She was encouraged to participate in routine exercise as tolerated. Assessment & Plan (03/07/2018 3:18 PM CDT): She still has generalized pain and tenderness essentially everywhere which has worsened somewhat since her recent fall. Will continue Lyrica 75 mg b.i.d. for now although if her symptoms do not improve will consider increasing this dose. She was encouraged to exercise. Assessment & Plan (02/09/2018 12:36 PM CDT): Has generalized pain and tenderness everywhere although appears stable. Cont lyrica 75 mg bid. Can consider increasing this in the future if symptoms progress. Pt encouraged to exercise. Assessment & Plan (11/07/2017 12:49 PM GUIDE FOREIGN TOUR): Still with generalized pain essentially everywhere with tenderness throughout on exam. Symptoms stable on lyrica. Cont lyrica 75 mg bid. Can consider increasing dose in future. Pt encouraged to exercise although she finds this difficult due to her feet pain. Assessment & Plan (08/08/2017 12:19 PM CDT): Has generalized pain described as achiness as well as daily fatigue. Pt feels lyrica has helped. Cont lyrica 75 mg bid. Pt encouraged to exercise. Assessment & Plan (06/21/2017 6:20 PM CDT): Has generalized achiness. Lyrica started last visit with some benefit. Cont lyrica 75 mg bid. Pt encouraged to exercise. Assessment & Plan (04/14/2017 5:13 PM CDT): Has generalized pain virtually everywhere so she was fatigue and poor cognition. Was previously on gabapentin with no benefit. Will initiate Lyrica 75 mg b.i.d. to see if this could offer her any additional benefit. She was encouraged to participate in routine exercise. 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 Inversion injury. XR (02/2023) negative for fracture. Assessment & Plan (03/14/2023 4:02 PM CDT): Inversion injury about 2 weeks ago. Suspect sprain however will get XR to rule out fracture. Recommend rest, ice, heat, and continue using compression wrap and orthotic shoe. Myalgia 03/30/2018 12/09/2023 Assessment & Plan (05/25/2018 1:36 PM CDT): The pain in her low back and pelvic girdle is much improved from last visit. The etiology is uncertain although likely is from her fibromyalgia and/or degenerative arthritis. X-ray of of her lumbar spine did reveal mild degenerative changes. X- ray of her pelvis did not reveal any significant abnormality in the hips or pelvis. There was some concern for polymyalgia rheumatica causing her symptoms although as she did not respond to triamcinolone 100 mg IM injection my suspicion for this is minimal. Nonetheless she is doing much better and pain currently is minimal in comparison to last visit. Will see if increasing the Lyrica to 150 mg b.i.d. will help the symptoms further. If symptoms progress may consider referral to physical therapy. Assessment & Plan (03/30/2018 3:47 PM CDT): She has significantly increased pain in her low back and pelvic girdle with pain down her legs to the point she has a hard time lifting her legs to even ambulate or get up from a sitting position. Pain is worse in her buttocks. Symptoms been ongoing for last 1 week. She is observed getting up from sitting position as well as walking and she has severe difficulty with this. She does have quite a bit tenderness throughout the pelvic girdle. Etiology is uncertain although polymyalgia rheumatica is possible as is lumbar spine pathology verses a flare-up of her rheumatoid arthritis versus a flare-up of her fibromyalgia syndrome. Will obtain labs as below. Will obtain x-ray of her lumbar spine and pelvis. Will give triamcinolone 100 mg IM injection today to see if this can help her symptoms. Pending response to this as well as x-rays and labs may consider additional treatment with prednisone 15 mg daily for possible polymyalgia rheumatica although at this time I am not convinced this is the etiology. Follow-up in 1 week. Primary osteoarthritis invol ving multiple joints 04/14/2017 04/14/2017 Dupuytren contracture 04/14/20172016 Chronic pain 03/04/2015 05/25/2018 Lumbago 03/04/2015 05/25/2018 Neuralgia 03/04/2015 05/25/2018 Pain in extremity 03/04/2015 05/25/2018 Joint swelling 02/13/2015 05/25/2018 Cephalalgia 02/13/2015 05/25/2018 Pain of foot 12/24/2014 05/25/2018 Encounters Date Type Department Care Team Description 02/22/[address] [phone] Marvin Machado 02/12/2025 Results Follow-Up [facility] [address] [place] [phone] Pop Mcwilliams MD 02/11/2025 11:15 AM CDT Office Visit [address] [phone] Sandhya Giordano PA Rheumatoid arthritis of multiple sites with negative rheumatoid factor (HCC) (Primary Dx); Fibromyalgia; Foot pain, bilateral; 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 12/13/[address] [phone] Marvin Machado from Last 3 Months Immunizations Immunization Administration Dates Next Due Influenza, Quadrivalent, Katheryn l Culture-based MDCK, Antibiotic Free, Intramuscular 08/22/2019 Influenza, Quadrivalent, Split, Intramuscular ,09/04/2021 Influenza, Quadrivalent, Spl it, Preservative Free, Intramuscular 08/08/2023 Surgical History Surgery Date Site/Laterality Comments FOOT SURGERY 01/13/2024 Right 2nd/3rd metatarsal heads resection FOOT SURGERY 05/31/2024 Left resection of 1st-5th metarasal head of left foot Medical History Medical History Date Comments Hypertension Family History Medical History Relation Name Comments Cancer Other Family history of Cancer, unknown; Heart disease Other Family history of Heart disease; Other Other Family history of eye disease; Relation Name Status Comments Other Social History Tobacco Use Types Packs/Day Years Used Date Smoking Tobacco: Heavy Smoker Cigarettes Tobacco Cessation:Ready to Q uit: Not Asked; Counseling Given: Not Answered Comments:Smoking History Packs/day: 10 Cigarettes Alcohol Use Standard Drinks/Week Comments No 0 (1 standard drink = 0.6 oz pur e alcohol) Personal Safety Answer Date Recorded Have you ever been in or are you currently in a harmful physical or emotional relationship or is someone making you feel afraid or unsafe? Denies 01/13/2024 Comments Unknown Sex and Gender Information Value Date Recorded Sex Assigned at Not on file Legal Sex Female 3:12 PM GUIDE FOREIGN TOUR Gender Identity Not on file Sexual Orientation Not on file Obstetrics History Last Filed Vital Signs Vital Sign Reading Time Taken Comments Blood Pressure 132/84 02/11/2025 11:15 AM CDT Pulse 87 02/11/2025 11:15 AM CDT Temperature 36.2 C (97.2 F) 01/13/2024 3:00 PM CDT Respiratory Rate 20 01/13/2024 3:00 PM CDT Oxygen Saturation 89% 02/11/2025 11:15 AM CDT Inhaled Oxygen Concentration - - Weight 84.4 kg (186 lb) 02/11/2025 11:15 AM CDT Height 167.6 cm (5' 6 ) 07/25/2024 1:33 PM CDT Body Mass Index 30.02 07/25/2024 1:33 PM CDT Plan of Treatment Health Maintenance Due Date Last Done Comments Breast Cancer Screening-Mammogram 1958 Colon Cancer Screening-Colonoscopy 1960 Depression Screening 1958 Osteoporosis Screening-Bone Density Scan 1958 DTaP/Tdap/Td Vaccine (1 - Tdap) 1969 Hepatitis B Screening 1976 Pneumococcal vaccine 65+ (1 of 2 - PCV) 1977 Zoster Vaccine (1 of 2) 1977 Well Visit 65+ 2023 Fall Risk Assessment 01/12/2025 01/13/2024 Hepatitis C Screening Completed 11/11/2015 Influenza Vaccine Completed 07/25/2024, , 09/04/2021, Additional history exists Procedures Procedure Name Priority Date/Time Associated Diagnosis Comments CRP (ACUTE PHASE) Routine 02/11/2025 11: 36 AM CDT Rheumatoid arthritis of multiple sites with negative rheumatoid factor (HCC) skilled nursing current use of therapeutic drug ERYTHROCYTE SEDIMENTATION RATE Routine 02/11/2025 11:36 AM CDT Rheumatoid arthritis of multiple sites with negative rheumatoid factor (HCC) skilled nursing current use of therapeutic drug CBC WITH AUTO DIFFERENTIAL Routine 02/11/2025 11:36 AM CDT Rheumatoid arthritis of multiple sites with negative rheumatoid factor (HCC) 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 COMPREHENSIVE METABOLIC PANEL Routine 02/11/2025 11:36 AM CDT Rheumatoid arthritis of multiple sites with negative rheumatoid factor (HCC) 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 SERUM HEPATITIS C AB Routine 11/11/2015 5:30 PM GUIDE FOREIGN TOUR from Last 3 Months or Most Recently Relevant to Health Maintenance Results * CBC with auto differential (02/11/2025 11:36 AM CDT) WBC 4.6 3.8 - 10.8 Thousand/u L [facility] RBC, POC 3.88 3.80 - 5.10 Million/uL [facility] Hgb 12.6 11.7 - 15.5 g/dL [facility] Hct 37.9 35.0 - 45.0 % [facility] MCV 97.7 80.0 - 100.0 fL [facility] MCH 32.5 27.0 - 33.0 pg [facility] MCHC 33.2 32.0 - 36.0 g/dL [facility] Comment: For adults, a slight decrease in the calculated MCHC value (in the range of 30 to 32 g/dL) is most likely not clinically significant; however, it should be interpreted with caution in correlation with other red cell parameters and the patient's clinical condition. Rdw 15.0 11.0 - 15.0 % [facility] Platelets 299 140 - 400 Thousand/u L [facility] MPV 9.1 7.5 - 12.5 fL [facility] Neutrophils, abs 2,815 1,500 - 7,800 cells/uL [facility] Lymphocytes, abs 1,279 850 - 3,900 cells/uL [facility] Monocyte abs 419 200 - 950 cells/uL [facility] Eosinophils, abs 69 15 - 500 cells/uL [facility] Basophils, abs 18 0 - 200 cells/uL [facility] Neutrophils 61.2 % [facility] Lymphocyte pct 27.8 % [facility] Monocytes 9.1 % [facility] Eosinophils 1.5 % [facility] Basophils 0.4 % [facility] Blood 02/11/2025 11:3 6 AM CDT 02/11/2025 11:37 AM CDT Sandhya DAMON LAB BLOOD ORDERABLES Final Result [facility] [address] [place] [address] * (ABNORMAL) Erythrocyte sedimentation rate (02/11/2025 11:36 AM CDT) Erythrocyte sedimentation rate 38(H) < OR = 30 mm/h [facility] Blood 02/11/2025 11:3 6 AM CDT 02/11/2025 11:37 AM CDT Sandhya DAMON LAB BLOOD ORDERABLES Final Result Performing Organization Address City/[facility]/ZIP Co de Phone Number [facility] [address] [place] [address] * CRP (acute phase) (02/11/2025 11:36 AM CDT) Pathologist [facility] C-RP <3.0 <8.0 mg/L [facility] Blood 02/11/2025 11:3 6 AM CDT 02/11/2025 11:37 AM CDT Sandhya DAMON LAB BLOOD ORDERABLES Final Result Performing Organization Address [facility] Co de Phone Number [facility] [address] [place] [address] * (ABNORMAL) Comprehensive metabolic panel (02/11/2025 11:36 AM CDT) Pathologist [facility] Glucose 97 65 - 99 mg/dL [facility] Comment: Fasting reference interval BUN 11 7 - 25 mg/dL [facility] Creatinine 0.74 0.50 - 1.05 mg/dL [facility] eGFR 89 > OR = 60 mL/min/1.7 3m2 [facility] BUN/creat ratio SEE NOTE: 6 - 22 (calc) [facility] Comment: Not Reported: BUN and Creatinine are within reference range. Sodium 137 135 - 146 mmol/L [facility] Potassium, pl 4.9 3.5 - 5.3 mmol/L [facility] Chloride 97(L) 98 - 110 mmol/L [facility] CO2 34(H) 20 - 32 mmol/L [facility] Calcium 9.5 8.6 - 10.4 mg/dL [facility] Protein, sr 7.1 6.1 - 8.1 g/dL [facility] Albumin 4.4 3.6 - 5.1 g/dL [facility] GLOBULIN 2.7 1.9 - 3.7 g/dL (calc) [facility] Alb/glob ratio 1.6 1.0 - 2.5 (calc) [facility] Bilirubin, total 0.3 0.2 - 1.2 mg/dL [facility] Alk phos 125 37 - 153 U/L [facility] AST 25 10 - 35 U/L [facility] ALT (SGPT) 15 6 - 29 U/L [facility] Blood 02/11/2025 11:3 6 AM CDT 02/11/2025 11:37 AM CDT us Sandhya DAMON LAB BLOOD ORDERABLES Final Result [facility] [address] [place] [address] * Serum Hepatitis C ab (11/11/2015 5:30 PM GUIDE FOREIGN TOUR) HCV ab Non-Reacti ve Non-Reacti ve HISTORICAL RESULTS Serum 11/11/2015 5:30 PM GUIDE FOREIGN TOUR us Ray Retana MD LAB BLOOD ORDERABLES Final Resul t Performing Organization Address City/[facility]/ZIP Co de Phone Number HISTORICAL RESULTS from Last 3 Months or Most Recently Relevant to Health Maintenance Insurance [employer] PPO MEDICARE CIGNA OPEN ACCESS CIGNA OPEN ACCESS Care Teams Lobby Attendant Relationship Specialty Start Date End Date Hayley Cerda NP [address] [facility] [address] [facility] 1 [place] [address] PCP - General Nurse Practitioner 04/16/24 Pop Mcwilliams MD [address] [facility] [address] [place] [address] Rheumatology 08/05/17 Elaine Doty DPM [address] [place], [place] [id number] Consulting Physician Foot and Ankle Surg 01/13/24
--- OUTSIDE RECORDS SUMMARY | 2025-02-23 14:57 | XMS_ITS | Encounter Summary ---
Author Organization [facility] Address [address] [place] [address] Phone Care Team Providers Care Feed Project Engineer Name Role Phone Pop Mcwilliams MD Unavailable [phone] Elaine Doty DPM Unavailable [phone] Hayley Cerda STAFF INTERPRETER Primary Care Provider [phone] Encounter Details Date Type Department Care Team (Late st Contact Info) Description 02/12/2025 Results Follow-Up [facility] [address] [place] [phone] Pop Mcwilliams MD [address] 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 [address] [place] [address] Rheumatology 08/05/17 Elaine Doty DPM [address] [place] [address] Consulting Physician Foot and Ankle Surg 01/13/24 documented as of this encounter
--- OUTSIDE RECORDS SUMMARY | 2025-02-23 14:57 | XMS_ITS | Encounter Summary ---
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 She has had foot surgeries lately and is likely referencing an MRI that was done by her foot surgeon. We have not ordered any recent MRIs for her. * Telephone Encounter - Marvin Machado - 02/22/2025 2:32 PM CDT Pt called wants to know the results of MRI, sent over request for MRI results to [facility] documented in this encounter Plan of Treatment Not on file documented as of this encounter Visit Diagnoses Not on filedocumented in this encounter Care Teams Toll Collector Supervisor Relationship Specialty Start Date End Date Hayley Cerda NP [address] [facility] 1 [facility] 1 [place] [address] PCP - General Nurse Practitioner 04/16/24 Pop Mcwilliams MD [address] [facility] [address] [place] [address] Rheumatology 08/05/17 Elaine Doty DPM [address] [facility] [place] [address] Consulting Physician Foot and Ankle Surg 01/13/24 documented as of this encounter
--- OUTSIDE RECORDS SUMMARY | 2025-02-23 14:57 | XMS_ITS | Clinical Summary ---
Author Organization [facility] [employer] Address [address] [place] [address] Care Team Providers Care Electrical Instrument Maker Name Role Phone Nereida Thomas MD Primary Care Provider + Source Comments [facility] [employer],non-[facility], formerly [facility] Affiliates and Associated Physician Practices is amultiple site organization consisting of ambulatory clinics and hospital sitesin [place], [place], [place] and [place]. This disclosure is being madepursuant to the Care Everywhere program and may not contain all information available regarding this patient. Last updated 18.[facility] [employer] Allergies Active Allergy Reactions Criticality Noted Date Comments Other Rash 05/14/2010 Unknown med Medications * This document contains information received from the source organization and may not represent a complete record from that organization. * Be aware that medications may not be up to date on this document. Alwaysverify current medications with the patient. buprenorphine-n aloxone (SUBOXONE) 2-0.5 MG tablet Dissolve 2 mg under the tongue daily. 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 Gender Identity Not on file Sexual Orientation Not on file Last Filed Vital Signs Vital Sign Reading Time Taken Comments Blood Pressure 112/85 05/17/2010 2:00 PM CDT Pulse 90 05/17/2010 2:00 PM CDT Temperature 35.8 C (96.4 F) 05/17/2010 8:00 AM CDT Respiratory Rate 18 05/17/2010 8:00 AM CDT Oxygen Saturation 98% 05/14/2010 11:00 PM CDT Inhaled Oxygen Concentration - - Weight 91.6 kg (202 lb) 05/17/2010 9:00 AM CDT Height 172.7 cm (5' 8 ) 05/14/2010 11:00 PM CDT Body Mass Index 30.71 05/14/2010 11:00 PM CDT Plan of Treatment Health Maintenance Due Date Last Done Comments BONE DENSITY TESTING 1960 COLOGUARD (AGES 45-75) - COL ON CA SCREENING 1958 COLON MONITORING 1958 COLONOSCOPY - COLON CA SCREENING 1958 CT COLONOGRAPHY - COLON CA SCREENING 1958 Colorectal Cancer Screening 1958 FIT - COLON CA SCREENING 1958 FLEX SIG - COLON CA SCREENING 1958 LIPID TESTING 1958 MAMMOGRAM 1958 HEPATITIS C SCREENING 06/22/1976 DTAP/TDAP/TD VACCINES (1 - Tdap) 1977 PNEUMOCOCCAL VACCINE 50+ (1 of 2 - PCV) 1977 ZOSTER VACCINE (1 of 2) 2008 COVID-19 VACCINE (1 - 2023-2 5 season) 2024 DEPRESSION SCREENING 10/24/2024 INFLUENZA VACCINE (Season Ended) 2025 01/27/2022, 09/04/2021, 08/22/2019 Respiratory Syncytial Virus (RSV) Vaccine Pt: or over 60 yrs (1 - 1-dose 75+ series) 2033 HEPATITIS B VACCINE Aged Out No longe r eligible based on patient's age to complete this topic HIB VACCINE Aged Out No longer eligi ble based on patient's age to complete this topic HPV VACCINE Aged Out No longer eligi ble based on patient's age to complete this topic MENINGOCOCCAL (Group B) VACCINE SHARED DECISION-MAKING Aged Out No longer eligible based on patient's age to complete this topic MENINGOCOCCAL GROUPS A/C/Y/W VACCINE Aged Out No longer eligible b ased on patient's age to complete this topic Insurance MEDICARE [facility] Address: [facility] [id number] [place] [phone] CIG Advance Directives * Full Code (Latest Code Status on File) Date Activated Date Inactivated Comments 05/15/2010 9:15 AM 05/18/2010 4:29 AM Care Teams Electrical Instrument Maker Relationship Specialty Start Date End Date Nereida Thomas MD [address] [place] [address] PCP - General Family Medicine 11/11/15
--- OUTSIDE RECORDS SUMMARY | 2025-02-23 14:57 | XMS_ITS | Referral Summary ---
Author Organization [facility] [address] [facility] Address [address] [place] [address] Phone Care Team Providers Care Wastewater Project Engineer Name Role Phone Pop Mcwilliams MD Unavailable [phone] Elaine DotyM Unavailable [phone] Hayley Cerda NP Primary Care Provider [phone] Encounters Date Type Department Care Team Description 02/22/[address] [phone] Marvin Machado 02/12/2025 Results Follow-Up [address] [phone] Pop Mcwilliams MD 02/11/2025 11:15 AM CDT Office Visit [address] [phone] Sandhya Giordano PA Rheumatoid arthritis of multiple sites with negative rheumatoid factor (HCC) (Primary Dx); Fibromyalgia; Foot pain, bilateral; 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 Assessment & Plan (12/11/2021 3:01 PM HAND MOLDER AND CASTER): XR c-spine (12/05/2020): moderate degenerative facet joint changes throughout the cervical spine. Mild to moderate disc space narrowing at C5-6 level. Findings have mildly progressed as compared to prior exam on 03/07/18. PT order given at previous visit. Assessment & Plan (11/06/2021 2:03 PM HAND MOLDER AND CASTER): XR c-spine (12/05/2020): moderate degenerative facet joint [...] PT. Assessment & Plan (11/28/2020 5:02 PM HAND MOLDER AND CASTER): Pain when turning head to the right. [...] deferred. 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 Moderate degenerative facet joint changes. Mild disc space narrowing at L4-5. Arthritic changes have progressed compared to prior study dated 04/29/18. Notes pain that she feels is exacerbated by bilateral foot pain and affecting her gait. Recommend PT however she defers at this time. Assessment & Plan (09/14/2022 2:58 PM HAND MOLDER AND CASTER): XR L-spine (12/05/2020): mild DJD mid to [...] recurrence. 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 Moderate degenerative facet joint changes. Mild disc space narrowing at L4-5. Arthritic changes have progressed compared to prior study dated 04/29/18. Given PT order at previous visit. Assessment & Plan (11/06/2021 2:02 PM HAND MOLDER AND CASTER): XR L-spine (12/05/2020): mild DJD mid to [...] visit. Assessment & Plan (11/28/2020 5:04 PM HAND MOLDER AND CASTER): Pain originating the R side low back/SI that radiates into the buttock and to the posterior mid-thigh and occasionally right groin suggesting degenerative pain vs sciatica. Will order x-ray of lumbar spine to evaluate for DJD. Depending on results will consider PT, MRI vs pain management. Start baclofen 10mg TID prn pain. 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 Orencia IV - nausea Assessment & Plan (11/12/2024 11:02 AM HAND MOLDER AND CASTER): Quantiferon negative: 02/2019 Hepatitis negative: 10/2015 CXR [...] nausea Assessment & Plan (12/09/2023 2:03 PM HAND MOLDER AND CASTER): Quantiferon negative: 02/2019 Hepatitis negative: 10/2015 CXR [...] nausea Assessment & Plan (12/14/2022 2:56 PM HAND MOLDER AND CASTER): Quantiferon negative: 02/2019 Hepatitis negative: 10/2015 CXR negative: 10/2015 Simponi aria - loss of benefit. Orencia IV - nausea Assessment & Plan (09/14/2022 2:57 PM HAND MOLDER AND CASTER): Quantiferon negative: 02/2019 Hepatitis negative: 10/2015 CXR [...] nausea Assessment & Plan (12/11/2021 3:01 PM HAND MOLDER AND CASTER): Quantiferon negative: 02/2019 Hepatitis negative: 10/2015 CXR negative: 10/2015 Simponi aria - loss of benefit. Orencia IV - nausea Assessment & Plan (11/06/2021 2:02 PM HAND MOLDER AND CASTER): Quantiferon negative: 02/2019 Hepatitis negative: 10/2015 CXR negative: 10/2015 Simponi aria - loss of benefit. Orencia IV - nausea Assessment & Plan (09/04/2021 2:14 PM HAND MOLDER AND CASTER): Quantiferon negative: 02/2019 Hepatitis negative: 10/2015 CXR [...] nausea Assessment & Plan (11/28/2020 1:23 PM HAND MOLDER AND CASTER): Quantiferon negative: 02/2019 Hepatitis negative: 10/2015 CXR [...] nausea Assessment & Plan (10/25/2019 3:22 PM HAND MOLDER AND CASTER): Quantiferon negative: 02/2019 Hepatitis negative: 10/2015 CXR [...] resection. Assessment & Plan (11/12/2024 11:03 AM HAND MOLDER AND CASTER): S/p R 2nd/3rd metatarsal head resection on [...] 01/13/24. Assessment & Plan (12/09/2023 2:55 PM HAND MOLDER AND CASTER): Previously had surgery for R 1st MTP [...] to ortho foot/ankle Dr. Elkin Merino at [facility] for re-evaluation however patient is hesitant to consider as she notes deformity continues progress despite past surgical interventions. She states she has an upcoming visit to discuss surgical options with foot surgeon. 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 She continues to have significant deformities bilaterally which cause difficulty with ambulation. Previously given referral to ortho foot/ankle Dr. Elkin Merino at [facility] for re-evaluation however patient is hesitant to consider as she notes deformity continues progress despite past surgical interventions. 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 She continues to have significant deformities bilaterally which cause difficulty with ambulation. Patient is wanting to consider surgical re-evaluation. Will reprint referral to ortho foot/ankle Dr. Elkin Merino at [facility]. 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 She continues to have significant deformities bilaterally which cause difficulty with ambulation. Patient is wanting to consider surgical re-evaluation. Will give referral to ortho foot/ankle Dr. Elkin Merino at [facility]. Assessment & Plan (11/07/2017 1:58 PM HAND MOLDER AND CASTER): Her feet pain appear to be her [...] deformities in her feet. Rheumatoid arthritis of [facility] sites with negative rheumatoid factor 04/14/2017 Overview [...] notice flare between visits. -Continue Humira SQ [id number]. -Continue Otrexup 25mg SQ weekly and folic acid 3mg daily. -Routine labs today. -Follow up in 3 months. Sooner if needed. Assessment & Plan (11/12/2024 12:07 PM HAND MOLDER AND CASTER): Low-moderate cdai. Started Humira in 05/2023 without any s/e and continues to have noticeable improvement of synovitis and tenderness on today's peripheral exam. -Continue Humira SQ [id number]. -Continue Otrexup 25mg SQ weekly and folic [...] as seen on XR. Continue Humira SQ [id number] (hold for 2 weeks before and 2 [...] as seen on XR. Continue Humira SQ [id number] (hold for 2 weeks before and 2 weeks after foot surgery). Continue Otrexup 25mg SQ weekly and folic acid 3mg daily. Routine labs today. Follow up in 3-4 months. Sooner if needed. Assessment & Plan (12/09/2023 2:55 PM HAND MOLDER AND CASTER): Moderate cdai. Started Humira in 05/2023 without any s/e and continues to have noticeable improvement of synovitis and tenderness on today's peripheral exam. Infusion reaction to Avsola on 10/02/21 (previously on Remicade w/o s/e and doing well). Neck and low back pain are unrelated to RA and due to degenerative changes as seen on XR. Continue Humira SQ [id number] (hold for 2 weeks before and 2 [...] as seen on XR. Continue Humira SQ [id number]. Continue Otrexup 25mg SQ weekly and folic [...] and start approval of Humira 40mg SQ [id number]. Patient advised of the side effects of [...] Mcwilliams. Assessment & Plan (12/14/2022 2:56 PM HAND MOLDER AND CASTER): Moderate cdai. Started Rinvoq 10/2021 with notable [...] Mcwilliams. Assessment & Plan (09/14/2022 2:55 PM HAND MOLDER AND CASTER): Low cdai. Started Rinvoq 10/2021 with notable [...] needed. Assessment & Plan (12/11/2021 4:31 PM HAND MOLDER AND CASTER): Low cdai. Started Rinvoq after last visit [...] needed. Assessment & Plan (11/06/2021 3:17 PM HAND MOLDER AND CASTER): High cdai. Infusion reaction to Avsola on [...] s/e. Assessment & Plan (09/04/2021 2:08 PM HAND MOLDER AND CASTER): Moderate cdai. Stable synovitis and joint tenderness noted on peripheral exam today. Neck and low back pain are unrelated to RA and due to degenerative changes as seen on XR. Reported improvement of joint pain with increased Remicade dose. Continue Remicade 8mg/kg (700mg) IV [id number]. Continue Rasuvo 25mg SQ weekly and folic [...] Remicade dose. Continue Remicade 8mg/kg (700mg) IV [id number]. Continue Rasuvo 25mg SQ weekly and folic [...] start PT. Increase Remicade 8mg/kg (700mL) IV [id number]. Continue Rasuvo 25mg SQ weekly and folic acid 3mg daily. Routine labs today. Follow up in 3 months. Sooner if needed. Seen with Dr. Mcwilliams. Assessment & Plan (11/28/2020 4:59 PM HAND MOLDER AND CASTER): Moderate cdai. Synovitis without tenderness noted on peripheral exam today. Improvement of synovitis with increased dose but still noticing pain. Discussed that neck and low back pain are likely unrelated to RA and more so the result of degenerative changes. Increase Remicade 7mg/kg IV [id number]. Continue Rasuvo 25mg SQ weekly and folic acid 3mg daily. Routine labs today. Follow up in 3 months. Sooner if needed. Seen with Dr. Mcwilliams. Assessment & Plan (07/08/2020 1:25 PM CDT): Moderate cdai. Synovitis with tenderness noted on peripheral exam today. Notes improvement of overall pain since starting Remicade but feels the overall benefit has plateaued. Increase Remicade 6mg/kg IV [id number]. Continue Rasuvo 25mg SQ weekly and folic acid 3mg daily. Routine labs today. Follow up in 3 months. Sooner if needed. Assessment & Plan (04/07/2020 3:12 PM CDT): Moderate cdai. Multiple swollen with few tender joints noted on peripheral exam today. Notes improvement of overall pain since starting Remicade. Increase Remicade 5mg/kg IV [id number]. Continue Rasuvo 25mg SQ weekly and folic acid 3mg daily. Routine labs today. Follow up in 3 months. Sooner if needed. Seen with Dr. Mcwilliams. Assessment & Plan (01/07/2020 2:42 PM CDT): Moderate cdai. Started Remicade 11/13/2019. Continues to have synovitis but improved tenderness noted on peripheral exam today. Loss of benefit with simponi aria. Continue Remicade 3mg/kg IV [id number], Rasuvo 25mg SQ weekly, and folic acid 3mg daily. Routine labs today. Follow up in 3 months. Sooner if needed. Seen with Dr. Mcwilliams. Assessment & Plan (10/25/2019 4:49 PM HAND MOLDER AND CASTER): Moderate cdai. Several swollen joints without tenderness noted on peripheral exam today. Notes nausea for 3 days and a sore on her tongue since starting orencia IV. Reported loss of benefit with simponi aria. Will start approval of Remicade 3mg/kg IV [id number]. Continue Rasuvo 25mg SQ weekly, and folic acid 3mg daily. Routine labs today. Follow up in 2 months. Sooner if needed. Seen with Dr. Mcwilliams. Assessment & Plan (08/22/2019 4:28 PM CDT): Moderate cdai. Continues to have swelling and joint pain with minimal tenderness noted on exam today. Started Orencia IV 07/12/19 and has finished the loading dose. Continue Orencia IV [id number], Rasuvo 25mg SQ weekly, and folic acid [...] 3mg daily, and Simponi aria IV 2mg/kg [id number]. Routine labs today as well as recheck TB quant. Follow up in 3 months. Sooner if needed. Assessment & Plan (12/01/2018 2:56 PM HAND MOLDER AND CASTER): Moderate cdai. Had simponia aria IV 2 [...] 3mg daily, and Simponi aria IV 2mg/kg [id number]. Routine labs today. Follow up in 3 months. Sooner if needed. Seen with Dr. Mcwilliams. Assessment & Plan (08/31/2018 3:59 PM HAND MOLDER AND CASTER): She reports she is feeling better now [...] months. Assessment & Plan (11/07/2017 2:01 PM HAND MOLDER AND CASTER): Appears to be doing better with simponi [...] this. Assessment & Plan (11/12/2024 11:03 AM HAND MOLDER AND CASTER): Generalized soft tissue pain/tenderness. Continue lyrica 150mg [...] this. Assessment & Plan (12/09/2023 2:53 PM HAND MOLDER AND CASTER): Generalized soft tissue pain/tenderness. Continue lyrica 150mg [...] this. Assessment & Plan (12/14/2022 2:56 PM HAND MOLDER AND CASTER): Generalized tender points on exam today. Continue lyrica 150mg BID and baclofen 10mg TID prn. Encouraged to participate in routine exercises which may benefit her chronic pain. Continue Voltaren gel up to 4 times daily prn as she does benefit from this. Assessment & Plan (09/14/2022 2:56 PM HAND MOLDER AND CASTER): Few generalized tender points on exam today. [...] this. Assessment & Plan (12/11/2021 3:00 PM HAND MOLDER AND CASTER): Few generalized tender points on exam today. Continue lyrica 150mg BID and baclofen 10mg TID prn. Encouraged to participate in routine exercises which may benefit her chronic pain. Continue Voltaren gel up to 4 times daily prn as she does benefit from this. Assessment & Plan (11/06/2021 2:08 PM HAND MOLDER AND CASTER): Few generalized tender points on exam today. Continue lyrica 150mg BID and baclofen 10mg TID prn. Encouraged to participate in routine exercises which may benefit her chronic pain. Continue Voltaren gel up to 4 times daily prn as she does benefit from this. Assessment & Plan (09/04/2021 2:14 PM HAND MOLDER AND CASTER): Few generalized tender points on exam today. [...] this. Assessment & Plan (11/28/2020 1:28 PM HAND MOLDER AND CASTER): Few generalized tender points on exam today. [...] this. Assessment & Plan (10/25/2019 3:23 PM HAND MOLDER AND CASTER): Few generalized tender points on exam today [...] this. Assessment & Plan (12/01/2018 2:58 PM HAND MOLDER AND CASTER): Few generalized tender points on exam today. Has been taking Lyrica 75mg qam and 150mg qhs with benefit. Will increase lyrica 150mg BID and patient given co-pay card for lyrica. Encouraged to participate in routine exercise which may benefit her chronic pain. Continue Voltaren gel up to 4 times daily prn as she does benefit from this. Assessment & Plan (08/31/2018 4:01 PM HAND MOLDER AND CASTER): She still has some generalized pain and [...] exercise. Assessment & Plan (11/07/2017 12:49 PM HAND MOLDER AND CASTER): Still with generalized pain essentially everywhere with [...] 02/13/2015 05/25/2018 Pain of foot 12/24/2014 05/25/2018 Immunizations Immunization Administration Dates Next Due Influenza, Quadrivalent, Katheryn l Culture-based MDCK, Antibiotic Free, Intramuscular 08/22/2019 Influenza, Quadrivalent, Split, Intramuscular ,09/04/2021 Influenza, Quadrivalent, Spl it, Preservative Free, Intramuscular 08/08/2023 Social History Tobacco Use Types Packs/Day Years [...] on file Legal Sex Female 3:12 PM HAND MOLDER AND CASTER Gender Identity Not on file Sexual Orientation [...] 07/25/2024 1:33 PM CDT Plan of Treatment Not on file Procedures Procedure Name Priority Date/Time Associated Diagnosis Comments CRP (ACUTE PHASE) Routine 02/11/2025 11: 36 AM CDT Rheumatoid arthritis of multiple sites with negative rheumatoid factor (HCC) longterm current use of therapeutic drug ERYTHROCYTE SEDIMENTATION RATE Routine 02/11/2025 11:36 AM CDT Rheumatoid arthritis of multiple sites with negative rheumatoid factor (HCC) 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 CBC WITH AUTO DIFFERENTIAL Routine 02/11/2025 11:36 AM CDT Rheumatoid arthritis of multiple sites with negative rheumatoid factor (HCC) longterm current use of therapeutic drug COMPREHENSIVE METABOLIC PANEL Routine 02/11/2025 11:36 AM CDT Rheumatoid arthritis of multiple sites with negative rheumatoid factor (HCC) 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 SERUM HEPATITIS C AB Routine 11/11/2015 5:30 PM HAND MOLDER AND CASTER from Last 3 Months or Most Recently [...] BLOOD ORDERABLES Final Result Performing Organization Address [facility] Co de Phone Number [facility] [address] [place] [address] * (ABNORMAL) Erythrocyte sedimentation rate (02/11/2025 11:36 AM CDT) [facility] Erythrocyte sedimentation rate 38(H) < OR = 30 mm/h [facility] Blood 02/11/2025 11:3 6 AM CDT 02/11/2025 11:37 AM CDT Sandhya DAMON LAB BLOOD ORDERABLES Final Result Performing Organization Address [facility] de Phone Number [facility] [address] [place] [address] * CRP (acute phase) (02/11/2025 11:36 AM CDT) [facility] C-RP <3.0 <8.0 mg/L [facility] Blood 02/11/2025 11:3 6 AM CDT 02/11/2025 11:37 AM CDT Sandhya DAMON LAB BLOOD ORDERABLES Final Result Performing Organization Address [facility] de Phone Number [facility] [address] [place] [address] * (ABNORMAL) Comprehensive metabolic panel (02/11/2025 11:36 AM CDT) [facility] Glucose 97 65 - 99 mg/dL [facility] [...] LAB BLOOD ORDERABLES Final Result [facility] [address] [place] [phone] * Serum Hepatitis C ab (11/11/2015 5:30 PM HAND MOLDER AND CASTER) HCV ab Non-Reacti ve Non-Reacti ve HISTORICAL RESULTS Serum 11/11/2015 5:30 PM HAND MOLDER AND CASTER us Ray Retana MD LAB BLOOD ORDERABLES Final Resul t HISTORICAL RESULTS from Last 3 Months or Most Recently Relevant to Health Maintenance Insurance [facility] PPO MEDICARE [facility] OPEN ACCESS CIGMICHELLE OPEN ACCESS Care Teams Wastewater Project Engineer Relationship Specialty Start Date End Date Hayley Cerda [employer] MACHINE [address] [facility] [address] [facility] [address] [place] [address] PCP - General Nurse Practitioner 04/16/24 Pop Mcwilliams MD [address] [facility] [address] [place] [address] Rheumatology 08/05/17 Elaine Doty DPM [address] [facility] [place] [address] Consulting Physician Foot and Ankle Surg 01/13/24
== END 2025-02-22 21:18 | disposition home or self-care (01) ==
PROVIDERS: Registered Nurse; Emergency Provider Emergency Medicine; PCP Nurse Practitioner Family
DX: M86.671 Other chronic osteomyelitis, right ankle and foot (principal); M06.9 Rheumatoid arthritis, unspecified; E78.5 Hyperlipidemia, unspecified; I10 Essential (primary) hypertension; F41.9 Anxiety disorder, unspecified; F32.A Depression, unspecified; F17.210 Nicotine dependence, cigarettes, uncomplicated; Z86.16 Personal history of COVID-19; Z79.899 Other long term (current) drug therapy; Z79.620 Long term (current) use of immunosuppressive biologic
CPT/HCPCS: 36415; 73630; 80053; 83605; 85025; 85610; 85730; 86140; 87040; 96365; 96366; 96367; 96368; 99284; J0692; J1836

== ENCOUNTER 2025-05-03 12:37 | Outpatient (CLI) | payer OTHER, SELFPAY ==
--- NOTE | ~2025-05-03 | DEXA_ITS ---
Bone Density Report Name: AUGUSTO REY Age: 64 Sex: Female Ethnicity: White Date of : 1960 Indication: postmenopausal; screening for osteoporosis; height loss; rheumatoid arthritis; Referring Provider: DOMENIC JOSE Study: Bone densitometry was performed. Exam Date: May 03, 2025 Accession number: [id number] Bone Density: Region BMD T-score Z-score Classification AP Spine(L1-L4) 0.896 -1.4 0.5 Osteopenia Femoral Neck (Left) 0.664 -1.7 -0.1 Osteopenia Total Hip (Left) 0.814 -1.0 0.3 Normal Femoral Neck (Right) 0.677 -1.6 0.1 Osteopenia Total Hip (Right) 0.816 -1.0 0.3 Normal Total Hip Mean 0.815 -1.0 0.3 Normal World Health Organization criteria for BMD impression classify patients as: Normal (T-score at or above -1.0), Osteopenia (T-score between -1.0 and -2.5), or Osteoporosis (T-score at or below -2.5). 10-year Fracture Risk(1): Major Osteoporotic Fracture 12% Hip Fracture 1.6% Reported Risk Factors: [place] (), Neck BMD=0.664, BMI=30.7, rheumatoid arthritis (1) FRAX(R) Version 3.08. Fracture probability calculated for an untreated patient. Fracture probability may be lower if the patient has received treatment. Previous Exams: -- Region Exam Age BMD T-score BMD Change BMD Change Date g/cm2 vs Baseline vs Previous -- AP Spine (L1-L4) 05/03/2025 64 0.896 -1.4 -5.9%* -5.9%* 09/30/2022 62 0.951 -0.9 Total Hip(Left) 05/03/2025 64 0.814 -1.0 -7.3%* -7.3%* 09/30/2022 62 0.878 -0.5 Total Hip(Right) 05/03/2025 64 0.816 -1.0 -4.7%* -4.7%* 09/30/2022 62 0.857 -0.7 -- *Denotes significance at 95% confidence level, LSC for AP Spine = 0.022 g/cm2, LSC for Total Hip = 0.027 g/cm2 Clinical Information Provided by Patient: Has rheumatoid arthritis Has used the following medications: Vitamin D, Calcium Patient maximum height was 68.5 Menopause Age: 51 No regular weight bearing exercise Does not regularly consume dairy products Drinks caffeinated beverages Onset of menses at age 11 Number of children 2 Impression: The patient has low bone mass, based on the Left Femoral Neck T-score. The patient has an estimated ten-year risk of hip fracture of 1.6% and an estimated ten-year risk of major fracture of 12%, based on the WHO FRAX algorithm. The BMD for the AP Spine (L1-L4) decreased, changing by -5.9% since the last DXA exam. The BMD for the Total Hip(Left) decreased, changing by -7.3% since the last DXA exam. The BMD for the Total Hip(Right) decreased, changing by -4.7% since the last DXA exam. Discussion: BONE DENSITY IS LOW AT ONE OR MORE SKELETAL SITES. This patient's lowest T-score is low at one or more skeletal sites. It meets the World Health Organization's (WHO) criteria for ?low bone mass? (T-score between -1.0 and -2.5). The patient's 10-year risk of fracture as calculated by FRAX is less than the threshold where pharmacological therapy is recommended by the National Osteoporosis Foundation (NOF). However, all treatment decisions require clinical judgment and consideration of individual patient factors, including patient preferences, comorbidities, previous drug use, risk factors not captured in the FRAX model (e.g., frailty, falls, vitamin D deficiency, increased bone turnover, interval significant decline in bone density) and possible under or overestimation of fracture risk by FRAX. The patient should follow a healthful lifestyle (good nutrition with adequate calcium and vitamin D, and appropriate weight-bearing exercise). Follow-Up: Consider repeating this study in 2 years to reassess this patient's status, or sooner if there is some new clinical indication. Reported by: CURT on 05/03/2025 1:48:00 PM. Reviewed, dictated and finalized at location A.
--- NOTE | ~2025-05-03 | MM_ITS ---
EXAMINATION: MM screening poornima BI w brendan HISTORY: Screening mammogram TECHNIQUE: Craniocaudal and mediolateral oblique 3-D tomosynthesis images were obtained and synthetic 2-D images were generated. CAD analysis was submitted and interpreted. COMPARISON: 02/10/2024, 07/13/2023, 11/23/2022, 09/30/2022 BREAST PARENCHYMAL COMPOSITION:Not Dense. The breasts are almost entirely fatty FINDINGS: No suspicious mass, calcification, or architectural distortion are identified in either evan ast to suggest malignancy. There has been no suspicious interval change. IMPRESSION: No mammographic evidence of malignancy. Recommend routine screening mammography in one year. BI-RADS Category 1: Negative Reviewed, dictated and finalized at location .
== END 2025-05-03 12:38 | disposition home or self-care (01) ==
LOC: MICIMG 12:37
PROVIDERS: PCP Nurse Practitioner Family; Visit Provider Nurse Practitioner Family
DX: Z12.31 Encounter for screening mammogram for malignant neoplasm of breast (principal); M85.89 Other specified disorders of bone density and structure, multiple sites; Z13.820 Encounter for screening for osteoporosis; Z78.0 Asymptomatic menopausal state
CPT/HCPCS: 77063; 77067; 77080

== ENCOUNTER 2025-05-23 11:25 | Outpatient (CLI) | payer OTHER, SELFPAY ==
--- NOTE | ~2025-05-23 | US_ITS ---
US retroperitoneal comp 05/23/2025 12:35 Procedure: Realtime transabdominal ultrasound of the kidneys and bladder. Indication: Decreased renal function Comparison: No prior studies for comparison. Findings: Renal echotexture is normal bilaterally without hydronephrosis, contour deforming mass or r enal calculus. The right kidney measures 11.2 cm and left kidney measures 9.8 cm. Bladder within nor mal limits. Impression: 1: Unremarkable renal ultrasound. No stones, masses or hydronephrosis. Reviewed, dictated and finalized at location A. Impression: 1: Unremarkable renal ultrasound. No stones, masses or hydronephrosis.
== END 2025-05-23 11:26 | disposition home or self-care (01) ==
LOC: MICIMG 11:26
PROVIDERS: PCP Nurse Practitioner Family
DX: Z12.2 Encounter for screening for malignant neoplasm of respiratory organs (principal); Z87.891 Personal history of nicotine dependence; N28.9 Disorder of kidney and ureter, unspecified
CPT/HCPCS: 76770

== ENCOUNTER 2025-06-27 10:23 | Outpatient (CLI) | payer OTHER, SELFPAY ==
--- NOTE | ~2025-06-27 | CT_ITS ---
EXAMINATION: CT lung screening DATE: 06/27/2025 10:37 INDICATION: Personal history of nicotine dependence TECHNIQUE: Computed tomography (CT) of the chest was performed without intravenous contrast. The dose-length product was 132.57 mGy-cm. Automated exposure control and iterative reconstruction technique were employed. COMPARISON: None FINDINGS: There are calcified granulomas of the spleen. Otherwise, the upper abdomen is unremarkable. Heart size normal. No thoracic lymphadenopathy. No significant pleural or pericardial effusion. There is a 2 mm nodule in the left upper lobe. There are calcified granulomas of the left lung. Mild emphysema. No endobronchial lesions. No focal pneumonia. No pneumothorax. Mild thoracic spondylosis. IMPRESSION: 1. Lung-RADS category 2: Benign appearance or behavior. Continue annual screening with noncontrast low-dose chest CT in 12 months. Reviewed, dictated and finalized at location O. IMPRESSION: 1. Lung-RADS category 2: Benign appearance or behavior. Continue annual screeni ng with noncontrast low-dose chest CT in 12 months.
== END 2025-06-27 10:24 | disposition home or self-care (01) ==
LOC: MICIMG 10:23
PROVIDERS: PCP Nurse Practitioner Family; Visit Provider Nurse Practitioner Family
DX: Z12.2 Encounter for screening for malignant neoplasm of respiratory organs (principal); Z87.891 Personal history of nicotine dependence
CPT/HCPCS: 71271